=== PATIENT | female | born 1985 | race Caucasian/White ===

== ENCOUNTER 2022-06-17 10:15 | Emergency (ER) | payer OTHER, SELFPAY ==
[2022-06-17 11:10] VITALS: BP 125/67; PULSE 107; RESP 18; TEMP 36.8; O2SAT 97
--- NOTE | 2022-06-17 11:26 | ED.URI ---
HPI - URI/Sore Throat General Chief Complaint: Upper Respiratory Infection Stated Complaint: cough,congestion Time Seen by Provider: 06/17/22 11:30 Source: patient and RN notes reviewed Mode of arrival: ambulatory Limitations: no limitations History of Present Illness HPI Narrative: 36-year-old female presents to the [facility] with complaints of fever, cough, congestion and runny nose. Patient states that she started on Tuesday. Has taken [id number] products with minimal relief. Related Data Home Medications Medication Instructions Recorded Confirmed No Home Medications 06/17/22 06/17/22 Allergies Allergy/AdvReac Type Severity Reaction Status Date / Time No Known Allergies Allergy Verified 06/17/22 11:24 Review of Systems Review of Systems: All systems reviewed & are unremarkable except as noted in HPI and below Constitutional: Constitutional: Reports as per HPI, Denies chills and Reports fever(s) Eyes: Eyes: Reports no additional eye complaints ENT: Reports as per HPI and Reports nasal congestion Cardiovascular: Cardiovascular: Reports no additional cardiovascular complaints Respiratory: Respiratory: Reports no additional respiratory complaints Gastrointestinal: Gastrointestinal: Reports no additional gastrointestinal complaints Musculoskeletal: Musculoskeletal: Reports no additional musculoskeletal complaints Integumentary/Breasts: Skin/Breast: Reports system reviewed and no additional complaints, except as docu Neurologic: Reports system reviewed and no additional complaints, except as documented Psychiatric: Psychiatric: Reports no additional psychiatric complaints Allergic/Immunologic: Allergic/Immunologic: Reports no additional allergic/immunologic complaints PMFSH Past Medical History Medical History (Updated 06/17/22 @ 16:40 by Nayana Mayo APRN) No significant medical problems Surgical History Surgical History (Updated 06/17/22 @ 16:40 by Nayana Mayo APRN) No history of previous surgery Social History Social History (Updated 06/17/22 @ 16:40 by Nayana Mayo APRN) Living arrangements: with family 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 There is no relevant family history pertinent to the patient complaint. Exam Const: General: no acute distress, alert, ill appearing acutely (mild) and well nourished Nutritional Appearance: well nourished Orientation/consciousness: patient oriented x3 Limitations: no limitations HENMT: Head: normal to inspection Ears: external ears normal, TM's normal bilaterally and EAC's normal Face/Nose/Sinus: Normal external nose present and Nasal discharge present clear Face and sinus: normal facial exam Mouth: Yes Normal oral and palatal mucosa present, Yes lip normal and Yes moist mucous membranes Throat: posterior oropharynx normal and uvula midline Eyes: General: appearance normal, both eyes and all related structures Pupils: Equal, round and reactive pupils present Neck: Neck: normal visual inspection, no lymphadenopathy and no meningeal signs Chest: Chest palpation & inspection: normal inspection of the chest Resp: Effort & Inspection: normal respiratory effort and no use of accessory muscles Auscultation: clear to auscultation bilaterally, no crackles, no rales, no rhonchi and no wheezes Cardio: Rate: regular rate Rhythm: regular rhythm Skin: General skin exam: normal color Rashes: no rashes Wounds: no wounds Neuro: General: patient oriented x3, moves all extremities, no meningeal signs and no focal motor deficits Cranial nerves: Yes Equal, round and reactive pupils present Speech: normal speech Gait exam (Neuro): Normal gait present Extrem: General: normal to inspection, full ROM an
== END 2022-06-17 11:50 | disposition home or self-care (01) ==
PROVIDERS: Emergency Provider Nurse Practitioner
DX: J10.1 Influenza due to other identified influenza virus with other respiratory manifestations (principal)
CPT/HCPCS: 87804; 99203; G0463

== ENCOUNTER 2024-12-03 08:59 | Emergency (ER) | payer OTHER, SELFPAY ==
[2024-12-03 09:07] VITALS: BP 132/77; PULSE 71; RESP 18; TEMP 36.3; O2SAT 99
--- NOTE | 2024-12-03 09:15 | ED_ITS ---
HPI - Dizziness General Chief Complaint: Dizziness Stated Complaint: Dizzy Time Seen by Provider: 12/03/24 09:16 Source: patient Mode of arrival: ambulatory Limitations: no limitations History of Present Illness HPI Narrative: She is here for a 5 day history of dizziness. She reports dizziness onset with flying to [place] for vacation. She reports she flew home yesterday and again had increased symptoms. She reports dizziness with changing positions and looking around. She reports dizziness improves if she is able to keep her eyes fixed on the ground. She does not feel 1 side feels worse than the other. She does report some nasal congestion and endorses some sinus pressure. she denies ear pain. She denies chest pain. She denies any history of diabetes. Related Data Allergies Allergy/AdvReac Type Severity Reaction Status Date / Time No Known Allergies Allergy Verified 12/03/24 09:11 Review of Systems Review of Systems: CONSTITUTIONAL: Denies fever, chills, or sweats. Reports dizziness. EYES: Denies redness or discharge. Endorses vision changes with dizziness. ENT: Denies rhinorrhea, sore throat, or otalgia. Reports congestion as noted in HPI. CARDIOVASCULAR: Denies chest pain, palpitations, or edema. RESPIRATORY: Denies cough or dyspnea. GASTROINTESTINAL: Denies abdominal pain, nausea, vomiting, or diarrhea. GENITOURINARY: Denies dysuria or hematuria. SKIN: Denies rash or itching. MUSCULOSKELETAL: Denies back pain, joint pain, or myalgia. NEUROLOGIC: Denies numbness, or weakness. Reports headaches, however states these are normal for her. PSYCHIATRIC: Denies anxiety or depression. All other systems reviewed are negative, except as documented in HPI. 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 HEAD: normocephalic, atraumatic. EYES: PERRL. +mild nystagmus. Sclera clear/white. Vision is grossly intact. EARS: External ears normal, auditory canals clear and without drainage, TMs with clear fluid and no perforation. Hearing grossly intact. NOSE: External nose normal with no obvious nasal discharge, nares with redness and rhinorrhea. THROAT: Mucous membranes moist, posterior pharynx clear. NECK: Trachea midline. CARDIOVASCULAR: Regular rate and rhythm without murmurs, gallops, or rubs. RESPIRATORY: Clear to auscultation. Breath sounds equal bilaterally. No wheezes, rales, or rhonchi. SKIN: warm, Dry, intact with no suspicious lesions or rash, good texture and turgor. NEURO: awake, alert, and oriented to person, place and time. There were no obvious focal neurologic abnormalities. EXTREMITIES: No joint tenderness, effusion, or edema noted. No calf tenderness. Negative Homans sign bilaterally. BACK: Nontender without deformity. Course Course Level of Care: Express Care Visit Vital Signs Vital signs: Vital Signs Temperature 36.3 C L 12/03/24 09:07 Pulse Rate 71 12/03/24 09:07 Respiratory Rate 18 12/03/24 09:07 Blood Pressure 132/77 12/03/24 09:07 Pulse Oximetry 99 12/03/24 09:07 Oxygen Delivery Room Air 12/03/24 09:07 Temperature 36.3 C L 12/03/24 09:07 Pulse Rate 71 12/03/24 09:07 Respiratory Rate 18 12/03/24 09:07 Blood Pressure 132/77 12/03/24 09:07 Pulse Oximetry 99 12/03/24 09:07 Oxygen Delivery Room Air 12/03/24 09:07 Reviewed. MDM - Dizziness MDM Narrative Medical decision making narrative: Reports dizziness after travel. Took Sudafed with some relief, but symptoms returned. No history of diabetes. No vomiting, but reported nausea. Staying well hydrated. Denies chest pain or history of cardiac concerns. Discharge Plan Discharge Clinical Impression: Vertigo Patient Disposition: Home Condition: Stable Instructions: Antibiotic Form, Vertigo (ED) Additional Instructions: Take medications as prescribed.? Follow printed instructions provided. Also start over the counter Flonase nasal spray and an oral antihistamine such as Zyrtec as directed on the packaging. Follow-up with primary care provider. Go to the ER for any worsening symptoms or concerns. Patient Language: Sami Prescriptions: New meclizine 25 mg tablet 25 mg PO TID Qty: 21 0RF ondansetron 4 mg tablet,disintegrating 4 mg PO Q6H PRN (Reason: nausea and vomiting) Qty: 12 0RF Follow-up/Referrals: [place], [Primary Care Provider] - Time of Disposition: 09:28
--- OUTSIDE RECORDS SUMMARY | 2024-12-03 09:48 | XMS_ITS | Clinical Summary ---
Author Organization [facility] Address [address] [place] [address] Care Team Providers Care Senior Report Developer Name Role Phone Unavailable Primary Care Provider Unavailabl e Allergies No known active allergies Medications No known medications Active Problems No known active problems Social History Tobacco Use Types Packs/Day Years Used Date Smoking Tobacco: Never Assessed Comments Unknown Sex and Gender Information Value Date Recorded Sex Assigned at Not on file Legal Sex Female 3:31 PM PDT Gender Identity Not on file Sexual Orientation Not on file Last Filed Vital Signs Vital Sign Reading Time Taken Comments Blood Pressure 108/70 01/25/2022 1:40 PM MDT Pulse 77 01/25/2022 1:40 PM MDT Temperature - - Respiratory Rate - - Oxygen Saturation - - Inhaled Oxygen Concentration - - Weight - - Height - - Body Mass Index - - Plan of Treatment Health Maintenance Due Date Last Done Comments Periodontal Maintenance 1985 Dental Oral Exam 07/15/2022 01/12/2022 Dental X-Ray: Bitewings 07/15/2022 01/12/2022 Scaling and Root Planing 02/09/2024 022, 01/25/2022, 01/25/2022, Additional history exists Dental X-Ray: Full Mouth 01/14/2025 01/13/2022, 12/15 Dental X-Ray: Panoramic 01/14/2025 01/13/2022, 01/12 Meningococcal B Vaccine Aged Out No l onger eligible based on patient's age to complete this topic Procedures Procedure Name Priority Date/Time Associated Diagnosis Comments LL PERIODONTAL SCALING AND ROOT PLANING - ONE TO THREE TEETH PER QUADRANT Routine 01/25/2022 1:30 PM MDT PANORAMIC RADIOGRAPHIC IMAGE Routine 01/12/2022 2:00 PM MDT INTRAORAL - COMPREHENSIVE SERIES OF RADIOGRAPHIC IMAGES Routine 01/12/2022 2:00 PM MDT COMPREHENSIVE ORAL EVALUATION - NEW OR ESTABLISHED PATIENT Routine 01/12/2022 2:00 PM MDT from Last 3 Months or Most Recently Relevant to Health Maintenance Insurance [facility] [place] [id number]
--- OUTSIDE RECORDS SUMMARY | 2024-12-03 09:48 | XMS_ITS | Encounter Summary ---
Author Organization [facility] Address [address] [place] [address] Care Team Providers Care Natural Gas Field Processing Supervisor Name Role Phone Unavailable Primary Care Provider Unavailabl e Prior Encounters Date Type Department Care Team Description 01/25/2022 Travel 01/25/2022 1:30 PM MDT Office Visit [facility] [address] [place] [address] Cecilia Pretty RDH 01/12/2022 Travel 01/12/2022 2:00 PM MDT Office Visit [facility] [address] [place] [address] Jaciel Pappas, MATILDA Last Filed Vital Signs Vital Sign Reading Time Taken Comments Blood Pressure 108/70 01/25/2022 1:40 PM MDT Pulse 77 01/25/2022 1:40 PM MDT Temperature - - Respiratory Rate - - Oxygen Saturation - - Inhaled Oxygen Concentration - - Weight - - Height - - Body Mass Index - - Plan of Treatment Not on file Procedures Procedure Name Priority Date/Time Associated Diagnosis Comments SALES TAX Routine 01/25/2022 1:30 PM MDT SALES TAX Routine 01/25/2022 1:30 PM MDT ORAL HYGIENE INSTRUCTIONS Routine 2021 1:30 PM MDT TOPICAL APPLICATION OF FLUORIDE VARNISH Routine 01/25/2022 1:30 PM MDT LL KEEGAN DECON ONE TO THREE TEETH/QUAD Routine 01/25/2022 1:30 PM MDT UL KEEGAN DECON ONE TO THREE TEETH/QUAD Routine 01/25/2022 1:30 PM MDT LL ANTIBACT IRR/QUAD Routine 01/25/2022 1:30 PM MDT UL ANTIBACT IRR/QUAD Routine 01/25/2022 1:30 PM MDT UL PERIODONTAL SCALING AND ROOT PLANING - ONE TO THREE TEETH PER QUADRANT Routine 01/25/2022 1:30 PM MDT UR PERIODONTAL SCALING AND ROOT PLANING - ONE TO THREE TEETH PER QUADRANT Routine 01/25/2022 1:30 PM MDT UR ANTIBACT IRR/QUAD Routine 01/25/2022 1:30 PM MDT LR PERIODONTAL SCALING AND ROOT PLANING - ONE TO THREE TEETH PER QUADRANT Routine 01/25/2022 1:30 PM MDT LL PERIODONTAL SCALING AND ROOT PLANING - ONE TO THREE TEETH PER QUADRANT Routine 01/25/2022 1:30 PM MDT UR KEEGAN DECON ONE TO THREE TEETH/QUAD Routine 01/25/2022 1:30 PM MDT LR KEEGAN DECON ONE TO THREE TEETH/QUAD Routine 01/25/2022 1:30 PM MDT LR ANTIBACT IRR/QUAD Routine 01/25/2022 1:30 PM MDT INTRAORAL PHOTO Routine 01/12/2022 2:00 PM MDT INTRAORAL PHOTO Routine 01/12/2022 2:00 PM MDT INTRAORAL PHOTO Routine 01/12/2022 2:00 PM MDT INTRAORAL PHOTO Routine 01/12/2022 2:00 PM MDT PANORAMIC RADIOGRAPHIC IMAGE Routine 01/12/2022 2:00 PM MDT INTRAORAL - COMPREHENSIVE SERIES OF RADIOGRAPHIC IMAGES Routine 01/12/2022 2:00 PM MDT COMPREHENSIVE ORAL EVALUATION - NEW OR ESTABLISHED PATIENT Routine 01/12/2022 2:00 PM MDT Visit Diagnoses Not on file Insurance [facility] [place] [id number]
--- OUTSIDE RECORDS SUMMARY | 2024-12-03 09:49 | XMS_ITS | Encounter Summary ---
Author Organization [facility] Address [address] [place] [address] Care Team Providers Care A P Manager Name Role Phone Unavailable Primary Care Provider Unavailabl e Encounter Details Date Type Department Care Team (Late st Contact Info) Description 04/06/2024 Lab Requisition [facility] - DermPath Lab [address] [place] [id number] Debby Taylor MD [address] [place] [address] [place] [address] Other follicular cysts of the skin and subcutaneous tissue; Other specified erythematous conditions; Other disturbances of skin sensation Social History Tobacco Use Types Packs/Day Years Used Date Smoking Tobacco: Never Assessed Comments Unknown Sex and Gender Information Value Date Recorded Sex Assigned at Not on file Legal Sex Female 8:35 AM CDT Gender Identity Not on file Sexual Orientation Not on file documented as of this encounter Plan of Treatment Not on file documented as of this encounter Procedures Procedure Name Priority Date/Time Associated Diagnosis Comments DERMATOPATHOLOGY Routine 04/05/2024 3:33 AM CDT Other follicular cysts of the skin and subcutaneous tissue Other specified erythematous conditions Other disturbances of skin sensation documented in this encounter Results * DERMATOPATHOLOGY (04/05/2024 3:33 AM CDT) Case Report Dermatopathology Report Case: [id number] Authorizing Provider: Debby Taylor MD Collected: 04/05/2024 03:33 AM Ordering Location: [facility] - Received: 04/06/2024 12:13 PM DermPath Lab Pathologist: Gloria Phillips MD Specimens: A) - Skin, left superior occipital scalp B) - Skin, left inferior occipital scalp 1:30 PM CDT DERMATOPATHOLOGY LABORATORY Final Diagnosis Specimen A. SKIN, left superior occipital scalp: TRICHILEMMAL (PILAR) CYST (L72.12) Specimen B. SKIN, left inferior occipital scalp: TRICHILEMMAL (PILAR) CYST (L72.12) 1:30 PM [facility] DERMATOPATHOLOGY LABORATORY Clinical History A-B: Cyst 1:30 PM [facility] DERMATOPATHOLOGY LABORATORY Gross Description Specimen A: Received is one formalin filled container labeled with the patient's name and designated left superior occipital scalp. The specimen consists of a [id number] mm piece of skin. The margin is inked green. The specimen is bisected lengthwise and submitted in 1 cassette. Jar 0. Specimen B: Received is one formalin filled container labeled with the patient's name and designated left inferior occipital scalp. The specimen consists of a 10x9x6,5x9x6,14x7x4 mm piece of skin. The specimen is serially sectioned and a call center representative section is submitted in cassette 1. Jar 1. 1:30 PM [facility] DERMATOPATHOLOGY LABORATORY Microscopic Description Specimen A. SKIN, left superior occipital scalp: Sections show a cyst that is lined by stratified squamous epithelium that shows trichilemmal keratinization (no granular layer). There is homogeneous pink keratin within the cyst. Specimen B. SKIN, left inferior occipital scalp: Sections show a cyst that is lined by stratified squamous epithelium that shows trichilemmal keratinization (no granular layer). There is homogeneous pink keratin within the cyst. 1:30 PM [facility] DERMATOPATHOLOGY LABORATORY Disclaimer An external and internal positive and negative controls are appropriate for the histochemical, immunohistochemical and immunofluorescence stain(s) in this case (if any), except where stated explicitly. The performance characteristics of the stain(s) cited in this report were developed and its performance characteristic determined by the Dermatopathology Laboratory at [facility], directed by Dr. Chino Cabrera. These tests need not be, and therefore are not, approved by the [place] Food and Drug Administration. The tests are used for clinical purposes. Billing Codes Specimen Charges Stain Charges 69636 95199 1 1 08/26/202 4 1:30 PM CDT DERMATOPATHOLOGY LABORATORY Embedded Images 4 1:30 PM CDT DERMATOPATHOLOGY LABORATORY Pathology/Cytology TISSUE SPECIMEN FROM SKIN / Unknown 04/05/2024 3:33 AM CDT 04/06/2024 12:13 PM CDT Miscellaneous samples (specimen) TISSUE SPECIMEN FROM SKIN / Unknown 04/05/2024 3:33 AM CDT 04/06/2024 12:13 PM CDT us Debby Taylor MD LAB - PATHOLOGY/CYTOLOGY ORDERAB LES Final Result DERMATOPATHOLOGY LABORATORY [facility] - Department of Dermatology [facility] [address] [place] [address], [address] [phone] documented in this encounter Visit Diagnoses Diagnosis Other follicular cysts of the skin and subcutaneous tissue Other specified erythematous conditions Other disturbances of skin sensation documented in this encounter
--- OUTSIDE RECORDS SUMMARY | 2024-12-03 09:49 | XMS_ITS | Clinical Summary ---
Author Organization [facility] Address [address] [place] [address] Care Team Providers Care Hearing Therapy Director Name Role Phone Unavailable Primary Care Provider Unavailabl e Source Comments [facility] [employer],non-owned Affiliates and Associated Physician Practices is amultiple site organization consisting of ambulatory clinics and hospital sitesin [place], [place], [place] and [place]. This disclosure is being madepursuant to the Care Everywhere program and may not contain all information available regarding this patient. Last updated 18.[facility] [employer] Social History Tobacco Use Types Packs/Day Years Used Date Smoking Tobacco: Never Assessed Comments Unknown Sex and Gender Information Value Date Recorded Sex Assigned at Not on file Legal Sex Female 8:35 AM CDT Gender Identity Not on file Sexual Orientation Not on file Plan of Treatment Health Maintenance Due Date Last Done Comments LIPID TESTING 1985 MAMMOGRAM 1983 PAP SMEAR 1983 HIV SCREENING 10/26/1998 HEPATITIS C SCREENING 10/22/2001 DTAP/TDAP/TD VACCINES (1 - Tdap) 10/26/2002 HEPATITIS B VACCINE (1 of 3 - 19+ 3-dose series) 10/26/2002 COVID-19 VACCINE (2023-2 5 season) 2024 DEPRESSION SCREENING 08/15/2024 INFLUENZA VACCINE (Season Ended) 2025 ZOSTER VACCINE (1 of 2) 10/26/2033 HIB VACCINE Aged Out No longer eligi ble based on patient's age to complete this topic HPV VACCINE Aged Out No longer eligi ble based on patient's age to complete this topic MENINGOCOCCAL (Group B) VACC INE SHARED DECISION-MAKING Aged Out No longer eligibl e based on patient's age to complete this topic MENINGOCOCCAL GROUPS A/C/Y/W VACCINE Aged Out No longer eligible b ased on patient's age to complete this topic PNEUMOCOCCAL VACCINE Aged Out No long er eligible based on patient's age to complete this topic Insurance
--- OUTSIDE RECORDS SUMMARY | 2024-12-03 09:49 | XMS_ITS | Continuity of Care Document ---
Author Name [facility] Organization [facility] Care Team Providers Care Director Of Dietary Name Role Phone [facility] Unavailable Unavailable Problems Combined list of problems from Department of Defense and Veterans Affairs facilities. It does not include entries that were removed or entered in error. Problem Status Onset Date Problem Type Date of Resolution Comments Source [place] Active 12/23/19 24 Diagnosis 6130C-Af -C-375Th [facility] Lipoma Active 12/20/19 24 Diagnosis 6130C-Af -C-375Th [facility] [place] Active 12/20/19 24 Diagnosis 6130C-Af -C-375Th [facility] Allergic rhinitis Active Condition 6130 C-Af -C-375Th [facility] LARYNGITIS ACUTE Inactive Condition DoD SINUSITIS ACUTE MAXILLARY Inactive Condition DoD SKIN NEOPLASM SCALP Active Condition DoD MARITAL PROBLEM Inactive Condition DoD DEPRESSION Active Condition DoD insomnia Active Condition DoD PREMENSTRUAL SYNDROMES Active Condition DoD Mood Irritable Active Condition DoD headache Inactive Condition DoD SEBACEOUS CYST Inactive Condition DoD ROUTINE GYNECOLOGICAL EXAM Inactive Condition DoD Preventive Medicine New Patient Evaluation Adult 18-39 Inactive Condition DoD visit for: examination of subpopulation Active Condition DoD ALLERGIC RHINITIS Active Condition DoD visit for: contraceptive surveillance Inactive Condition DoD PSORIASIS Active Condition DoD Patient Education - Procreative Management Active Condition DoD lightheadedness Inactive Condition DoD visit for: screening exam malignant neoplasm breast Inactive Condition DoD skin: a rash [as Sx] Active Condition DoD SEBORRHEIC DERMATITIS Active Condition DoD visit for: administrative purpose Active Condition DoD joint pain, localized in the shoulder Active Condition DoD ANOMALIES OF NAILS Active Condition DoD 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 She states still having problem with stomach pain. Per Dr Mcduffie, patient to continue Prilosec as prescribed and f/u after bein on it for 2 week.s F/u scheduled with patient as below. F/u sooner prn. DoD ESOPHAGEAL REFLUX Active Condition DoD CYSTOCELE Active Condition asymptomat ic. discussed this with patient. Discussed kegalsno plan to do anything unless sx develop DoD visit for: exam Active Condition patient doin g well without major complicationsf/u as neededshe well start ocp's in october when comespap/gc done DoD NORMAL Inactive Condition see hard bryson rt DoD ABNORMAL GLUCOSE Active Condition DoD NORMAL CHECKUP - THIRD TRIMESTER Inactive Condition fkc/labor precautions DoD NORMAL CHECKUP - SECOND TRIMESTER Active Condition DoD NORMAL CHECKUP - INITIAL Active Condition DoD Patient Education - Preparation For Childbirth Active Condition DoD Patient Education - Dietary Inactive Condition A: Patient demonstrated understanding as shown by her active role during the discussion portion of the lecture. P: 1. Recommend patient to schedule a follow-up appointment with [facility] at [phone] for further instruction and to obtain an individualized meal plan to meet nutritional needs during . 2. Will continue to provide nutrition information and support per request DoD Supervision Of Normal Active Condition DoD Test Positive Active Condition DoD Abnormal Pap Smear Of Cervix Active Condition Pap ordered via [facility]. Discussed return of fertility following discontinuation of Depo-Provera. Pt will follow up with her PCM as necessary regarding possible infertility issues. Pt had no other questions at this time. DoD CERVICITIS CHLAMYDIA TRACHOMATIS Active Condition DoD ROUTINE GYNECOLOGICAL EXAM WITH CERVICAL PAP SMEAR Inactive Condition DoD Cervical Pap Smear Active Condition DoD NORMAL ROUTINE HISTORY AND PHYSICAL ADULT (18-65) Inactive Condition overseas clearance exam.urine preg neg, DoD Medications Combined list of outpatient medications from Department of Defense and Veterans Affairs facilities.Medications provided include 1) outpatient medications from the last 15 months, and 2) patient-reported medications. Medication Details Route Status Patient Instructions Prescription Expires Prescription Number Last Dispense Date Ordering Provider Order Date Order Qty Source METRONIDAZO LE (METRONIDAZ OLE), 0.75%, CREAM(GM), TOPICAL, FOUGERA, 45 g TUBE Active [id number] 2023 45 Pharmac y Data Transac tion Service Facilit y METRONIDAZO LE (metronidaz ole), 1 %, GEL (GRAM), TOPICAL, [facility], 60 g TUBE Active [id number] 4 2023 60 Pharmac y Data Transac tion Service Facilit y metroNIDAZO LE 1% topical cream 1 appl(s), Topical, Daily, # 30 g, 3 total refill(s ), [facility], [id number] Topica l (on the skin) Discont inued 12/23/20232023 30.0 6130C-A f-C-375 Th [facility] [place] 1% topical gel See Instruct ions, 1 appl(s) Topical Daily apply a thin film to affected area after washing, # 60 g, 1 total refill(s ), [facility], [facility] : [id number] Ordered 2023 60.0 6130C-A f-C-375 Th [facility] [place] [facility]ERNA COVID-19 VACCINE (EUA) (COVID-19 vaccine, mRNA, [id number], LNP-S (Moderna)/P F), 100MCG/0.5, MODERNA COVID-19 VACCINE (EUA) (COVID-1 9 vaccine, mRNA, [id number], LNP-S (Moderna )/PF), 100MCG/0 .5, Start Date: 10/10/20 Stop Date: 12/19/23 Status: Disconti nued Repeat number: 1 Discont inued 12/20/20232023 No Facilit y Access Allergies, Adverse Reactions, Alerts Combined list of allergies from Department of Defense and Veterans Affairs facilities. It does not include entries that were removed or entered in error. Substance Category Reaction Severity Reaction type Status Date Reported Comments Source No Known Allergies Drug allergy (disorder) active 01/17/2008 [facility] Immunizations Combined list of available immunizations from the Department of Defense and Veterans Affairs facilities. Immunization Series Date Given Administered By Site Reaction Lot Number CVX Code Drug Breeding Manager Status Comments Source COVID-19, mRNA, LNP-S, PF, 100 mcg or 50 mcg dose 2021 [employer] (MOD) Not Given COVID-19, mRNA, LNP-S, PF, 100 mcg or 50 mcg dose DoD COVID-19, mRNA, LNP-S, PF, 100 mcg or 50 mcg dose 2020 ADAM, () Not Given COVID-19, mRNA, LNP-S, PF, 100 mcg or 50 mcg dose DoD COVID-19, mRNA, LNP-S, PF, 100 mcg or 50 mcg dose 2020 MEDINA, () Not Given COVID-19, mRNA, LNP-S, PF, 100 mcg or 50 mcg dose DoD hepatitis B adult vaccine 2009 zzRig ht Arm [id number] [facility] complet ed hepatitis B adult vaccine 01/01/10 Given Ambulat ory Pharmac y hepatitis B vaccine, adult dosage 2 2009 Unknown, Provider [id number] 43 [place] complet ed hepatitis B vaccine, adult dosage DoD tuberculin purified protein derivative 2009 zzLef t Arm [id number] sanofi pasteur complet ed Patient Tolerance : Negative Ambulat ory Pharmac y tuberculin skin test; purified protein derivative solution, intradermal 1 2009 Unknown, Provider [id number] Sanofi Pasteur (PMC) complet ed tuberculi n skin test; purified protein derivativ e solution, intraderm al DoD tuberculin purified protein derivative 2006 zzLef t Arm [id number] sanofi pasteur complet ed Patient Tolerance : Negative Ambulat ory Pharmac y tuberculin skin test; purified protein derivative solution, intradermal 1 2006 Unknown, Provider [id number] 96 Sanofi Pasteur (PMC) complet ed tuberculi n skin test; purified protein derivativ e solution, intraderm al DoD tetanus-dipht h toxoids (Td) adult/adol 2001 09 complet ed tetanus-d iphth toxoids (Td) adult/ado l 03/09/02 Given Ambulat ory Pharmac y hepatitis B adult vaccine 2001 43 complet ed hepatitis B adult vaccine 03/09/02 Given Ambulat ory Pharmac y tetanus and diphtheria toxoids, adsorbed, preservative free, for adult use (2 Lf of tetanus toxoid and 2 Lf of diphtheria toxoid) 1 2001 Unknown, Provider 09 Transcribed (TRS) complet ed tetanus and diphtheri a toxoids, adsorbed, preservat víctor free, for adult use (2 Lf of tetanus toxoid and 2 Lf of diphtheri a toxoid) DoD hepatitis B vaccine, adult dosage 1 2001 Unknown, Provider 43 Transcribed (TRS) complet ed hepatitis B vaccine, adult dosage DoD poliovirus vaccine, live, oral 1990 zzLef t Arm 02 complet ed polioviru s vaccine, live, oral 05/11/91 Given Ambulat ory Pharmac y measles/mumps /rubella virus vaccine 1990 03 complet ed measles/m umps/rube lla virus vaccine 05/11/91 Given Ambulat ory Pharmac y diphtheria/te tanus toxoids/pertu is 1990 zzLef t Arm 01 complet ed diphtheri a/tetanus toxoids/p ertussis 05/11/91 Given Ambulat ory Pharmac y diphtheria, tetanus toxoids and pertu is vaccine 4 1990 Unknown, Provider 01 () complet ed diphtheri a, tetanus toxoids and pertussis vaccine DoD trivalent poliovirus vaccine, live, oral 4 1990 Unknown, Provider 02 () complet ed trivalent polioviru s vaccine, live, oral DoD measles, mumps and rubella virus vaccine 2 1990 Unknown, Provider 03 Transcribed (TRS) complet ed measles, mumps and rubella virus vaccine DoD tuberculin purified protein derivative 1989 96 complet ed Patient Tolerance : Negative Ambulat ory Pharmac y tuberculin skin test; purified protein derivative solution, intradermal 2 1989 Unknown, Provider 96 Transcribed (TRS) complet ed tuberculi n skin test; purified protein derivativ e solution, intraderm al DoD typhoid Vi capsular polysaccharid e vac 1985 101 complet ed typhoid Vi capsular polysacch aride vac 04/02/86 Given Ambulat ory Pharmac y tuberculin purified protein derivative 1985 96 complet ed Patient Tolerance : Negative Ambulat ory Pharmac y tuberculin skin test; purified protein derivative solution, intradermal 2 1985 Unknown, Provider 96 Transcribed (TRS) complet ed tuberculi n skin test; purified protein derivativ e solution, intraderm al DoD typhoid Vi capsular polysaccharid e vaccine 1 1985 Unknown, Provider 101 Transcribed (TRS) complet ed typhoid Vi capsular polysacch aride vaccine DoD poliovirus vaccine, live, oral 1984 zzLef t Arm 02 complet ed polioviru s vaccine, live, oral 06/11/85 Given Ambulat ory Pharmac y diphtheria/te tanus toxoids/pertu is 1984 zzLef t Arm 01 complet ed diphtheri a/tetanus toxoids/p ertussis 06/11/85 Given Ambulat ory Pharmac y diphtheria, tetanus toxoids and pertu is vaccine 3 1984 Unknown, Provider 01 () complet ed diphtheri a, tetanus toxoids and pertussis vaccine DoD trivalent poliovirus vaccine, live, oral 3 1984 Unknown, Provider 02 () complet ed trivalent polioviru s vaccine, live, oral DoD poliovirus vaccine, live, oral 1984 zzLef t Arm 02 complet ed polioviru s vaccine, live, oral 03/29/85 Given Ambulat ory Pharmac y measles/mumps /rubella virus vaccine 1984 03 complet ed measles/m umps/rube lla virus vaccine 03/29/85 Given Ambulat ory Pharmac y diphtheria/te tanus toxoids/pertu is 1984 zzLef t Arm 01 complet ed diphtheri a/tetanus toxoids/p ertussis 03/29/85 Given Ambulat ory Pharmac y diphtheria, tetanus toxoids and pertu is vaccine 2 1984 Unknown, Provider 01 () complet ed diphtheri a, tetanus toxoids and pertussis vaccine DoD trivalent poliovirus vaccine, live, oral 2 1984 Unknown, Provider 02 () complet ed trivalent polioviru s vaccine, live, oral DoD measles, mumps and rubella virus vaccine 1 1984 Unknown, Provider 03 Transcribed (TRS) complet ed measles, mumps and rubella virus vaccine DoD tuberculin purified protein derivative 1984 96 complet ed Patient Tolerance : Negative Ambulat ory Pharmac y tuberculin skin test; purified protein derivative solution, intradermal 2 1984 Unknown, Provider 96 Transcribed (TRS) complet ed tuberculi n skin test; purified protein derivativ e solution, intraderm al DoD poliovirus vaccine, live, oral 1983 zzLef t Arm 02 complet ed polioviru s vaccine, live, oral 83 Given Ambulat ory Pharmac y diphtheria/te tanus toxoids/pertu is 1983 Meliaef t Arm 01 complet ed diphtheri a/tetanus toxoids/p ertussis 83 Given Ambulat ory Pharmac y diphtheria, tetanus toxoids and pertu is vaccine 1 1983 Unknown, Provider 01 () complet ed diphtheri a, tetanus toxoids and pertussis vaccine DoD trivalent poliovirus vaccine, live, oral 1 1983 Unknown, Provider 02 () complet ed trivalent polioviru s vaccine, live, oral DoD Results Combined list of recent chemistry, hematology and other laboratory results from Department of Defense and Veterans Affairs, ranging from 15 months to all on record, depending upon the facility. Order Name Results Value Reference Range Date Interpretation Specimen Comments Source Chemistry TSH 3.990 mIU/L 0.270 - 4.200 12/19 N Interpretive Data: Recommend: TPO/Thyroper oxidase Antibody when TSH result is > 4.2 uIU/mL 5600A-U SAFSAM EPILAB Hematology [place] Absolute 0.5 x10^3/ mcL 0.2 - 0.8103 12/19 N 0055A-[address] [place] [address] Hematology Baso Absolute 0.0 x10^3/ mcL 0.0 - 0.1103 12/19 N 0055A-[address] [place] [address] Hematology Monocyte % Auto 6 % 1 - 12 12/19 N 0055A-[address] [place] [address] Hematology Basophil % Auto 0.6 % 0.0 - 2.5 12/19 N 0055A-[address] [place] [address] Hematology Neutro Absolute 5.1 x10^3/ mcL 2.0 - 7.0103 12/19 N 0055A-[address] [place] [address] Hematology Eos Absolute 0.5 x10^3/ mcL 0.0 - 0.7103 12/19 N 0055A-[address] [place] [address] Hematology Eosinophil % Auto 5 % 0 - 5 12/19 N 0055A-[address] [place] [address] Hematology Lymphocyte % Auto 30.5 % 20.0 - 40.0 12/19 N 0055A-[address] [place] [address] Lymph Absolute 2.7 x10^3/ mcL 1.2 - 4.0103 12/[address] [place] [address] Neutrophil % Auto 57.2 % 46.0 - 77.0 12/[address] [place] [address] MCH 29 pg 28 - 33 12/[address] [place] [address] Platelets 312.0 x10^3/ mcL 150.0 - 450.0103 12/[address] [place] [address] Hematocrit 40 % 34 - 46 12/[address] [place] [address] RBC 4.6 x10^6/ mcL 3.6 - 5.0106 12/[address] [place] [address] RDW 12.0 % 11.0 - 14.9 12/[address] [place] [address] MCHC 34.1 g/dL 33.0 - 36.5 12/[address] [place] [address] Hemoglobin 13.6 g/dL 11.0 - 15.0 12/[address] [place] [address] MCV 86 fL 80 - 97 12/[address] [place] [address] Differentia l? Auto ( 4 3:38 PM) 12/[address] [place] [address] MPV 9.9 fL 7.4 - 10.4 12/[address] [place] [address] WBC 8.9 x10^3/ mcL 4.0 - 11.0103 12/[address] [place] [address] Vital Signs Combined list of inpatient and outpatient Vital Signs from Department of Defense and Veterans Affairs, ranging from 12 months to all on record, depending upon the facility. Vital Sign Value Date Comments Source Peripheral Pulse Rate 79 bpm 12/20/2023 19:22:00 3724T-Xn-U-375Th [facility] Temperature Oral 37.2 Mena 12/20/2023 19:22:00 4298C-Fz-V-375Th [facility] Respiratory Rate 14 br/min 12/20/2023 19:22:00 8235A-Ea-O-375Th [facility] BP Site Left arm 12/20/2023 19:22:00 6130C -Af-C-375Th [facility] Mean Arterial Pressure, Calc 99 mm[Hg] 12/20/2023 19:22:00 2885P-Gk-T-3 75Th [facility] Blood Pressure Manual Automatic 12/20/2023 19:22:00 6346K-Yu-Q-375Th [facility] Systolic Blood Pressure 130 mm[Hg] 12/20/2023 19:22:00 7825K-Is-J-375Th [facility] Diastolic Blood Pressure 83 mm[Hg] 12/20/2023 19:22:00 2118H-Jo-Y-375Th [facility] Encounters Combined list of: 1) Encounters from Department of Veterans Affairs facilities going backup to the last 18 months, not all VA inpatient encounters are included; 2) Encounters from the Department of [facility] facilities going backup to 280 months. Location Location Details Encounter Type Encounter Number Reason For Visit Attending Provider ADM Date DC Date Status Disposition Source [employer] [place] [id number] [place] Box 12/09 Released w/o Limitations [employer](F amily Practic e Contrac t) [facility](K A Gynecolog y Clinic) OUTPATIENT [id number] annual IRMA RDZ 06/17 Released w/o Limitations [facility] ( Gynecol ogy Clinic) [facility]necolog [facility]) OUTPATIENT [id number] std councel ing IRMA RDZ 06/27 Released w/o Limitations [facility] ( Gynecol ogy Clinic) [facility] Gynecolog [facility]) OUTPATIENT [id number] re-pap/ pap DEV Moore 10/25 Released w/o Limitations [facility] ( Gynecol ogy Clinic) [facility] A Gynecolog y Clinic) OUTPATIENT [id number] JOAN VILLANUEVA 11/13 Released w/o Limitations [facility] (KA Gynecol ogy Clinic) [facility](I nternal Medicine Clinic) OUTPATIENT [id number] OB clinic WALI LEMOS 11/23 Released w/o Limitations [facility] (Fuels Sales Representative al Medicin e Clinic) [facility](O b/Guest Services Agent Clinic) OUTPATIENT [id number] Pregnan cy Test Positiv e KELLY OLIVO 11/23 Released w/o Limitations [facility] (Mobile Electronics Installer Clinic) [facility](O b/Guest Services Agent Clinic) OUTPATIENT [id number] nob10 ARFAA, KAIVON 12/09 Released w/o Limitations [facility] ([facility] Installer Clinic) [facility](O b/Guest Services Agent Clinic) OUTPATIENT [id number] paul f/u 15 wks ARFAA, KAIVON 02/06 Released w/o Limitations [facility] ([facility]) [facility](O b/Guest Services Agent Clinic) OUTPATIENT [id number] paul ARFAA, KAIVON 03/22 Released w/o Limitations [facility] ([facility]) [facility](O b/Guest Services Agent Clinic) OUTPATIENT [id number] ob fu 27 weeks ARFAA, KAIVON 04/26 Released w/o Limitations [facility] ([facility]) [facility](O b/Guest Services Agent Clinic) OUTPATIENT [id number] OB FU ARFAA, KAIVON 05/24 Released w/o Limitations [facility] ([facility] Install[facility]) [facility](O b/Guest Services Agent Clinic) OUTPATIENT [id number] ob f/u ARFAA, KAIVON 06/06 Released w/o Limitations [facility] ([facility] Installer Clinic) [facility](O b/Guest Services Agent Clinic) OUTPATIENT [id number] ARFAA, KAIVON 06/19 Released w/o Limitations [facility] ([facility] Installer [facility]) [facility](O b/Guest Services Agent Clinic) OUTPATIENT [id number] paul 37 weeks ARFAA, KAIVON 06/29 Released w/o Limitations [facility] ([facility]) [facility](O b/Guest Services Agent Clinic) OUTPATIENT [id number] ob fu 38 weeks ARFAA, KAIVON 07/04 Released w/o Limitations [facility] ([facility]) [facility](O b/Guest Services Agent Clinic) OUTPATIENT [id number] OB F/U GRIFFIN ABARCA 07/11 Released w/o Limitations [facility] ([facility]) [facility] DIRECT TO [facility] FROM OTHER THAN ER OR [facility] [id number] ARFAA, KAIVON 07/11 DISCHARGED HOME [facility](O b/Guest Services Agent Clinic) OUTPATIENT [id number] postpar akiko ARFAA, KAIVON 08/18 Released w/o Limitations [facility] ([facility] Installer Clinic) [facility](K cathy [employer]) OUTPATIENT [id number] nausea dizzyne ss, sharp pain with headach es LADONNA MCDUFFIE H 10/04 Released w/o Limitations [facility] ([place] [employer] [facility] ) [facility](K cathy [employer]) TELE CONSULT [id number] rad results HIEU MNOTOYA 10/09 [facility] ([place] [employer] [facility] ) [facility](K cathy [employer]) OUTPATIENT [id number] back pain x 2wks DEV AMAYA 01/21 Released w/o Limitations [facility] ([place] [employer] [facility] ) [facility](K A Gynecolog y Clinic) OUTPATIENT [id number] BC RefWHIT Banuelos 04/18 Released w/o Limitations [facility] (KA Gynecol ogy Clinic) [facility](K cathy [employer]) OUTPATIENT [id number] issue w/ inconte nace after giving in herbert sandoval provide r CONSTANTIN MAC 04/24 Released w/o Limitations [facility] ([place] [employer] ) [facility] [employer]) OUTPATIENT [id number] sore throat; hard to breathe in this morning ANDRIY AMADOR 05/16 Released w/o Limitations [facility] ([place] [employer] ) [facility](U rology Clinic) OUTPATIENT [id number] CYSTOCE TRUNG MIRANDA 05/20 Released w/o Limitations [facility] (Urolog y Clinic) [facility](K A Gynecolog y Clinic) OUTPATIENT [id number] annual YASMIN RANGEL 09/17 Released w/o Limitations [facility] ( Gynecol ogy Clinic) [facility](K A Gynecolog y Clinic) TELE CONSULT [id number] LAB RESULTS ADITYA PATTY 10/01 [facility] ( Gynecol ogy Clinic) [facility] [employer]) OUTPATIENT [id number] Torn toe nail ILA HOOVER W 12/31 Released w/o Limitations [facility] ([place] [employer] ) [facility] [employer]) OUTPATIENT [id number] F/u for torn great toe nail ILA HOOVER W 01/07 Released w/o Limitations [facility] ([place] [employer] ) [facility](K [facility] [employer]) TELE CONSULT [id number] no routine appt CATIE PALMA 01/21 [facility] ([place] [employer] [facility] ) [facility] [employer]) OUTPATIENT [id number] neck and shoulde r pain ILA HOOVER W 01/30 Released w/o Limitations [facility] ([place] [employer] [facility] ) [facility] [employer]) OUTPATIENT [id number] f/u neck and l shoulde r pain ILA HOOVER W 02/06 Released w/o Limitations [facility] ([place] [employer] ) [facility] Practice Blue) TELE CONSULT [id number] New Patient In-Proc ANDRIY Irwin 03/28 [facility](F amily Practic e Blue) [facility] Practice Red) OUTPATIENT [id number] rash off/on for a month ANDRIY BUENO 08/21 Released w/o Limitations [facility](F amily Practic e Red) [facility] Practice Red) TELE CONSULT [id number] lab results NILES MUNOZ 08/22 [facility](F amily Practic e Red) [facility](Guest Services Agent Clinic) OUTPATIENT [id number] annual pap exam LOYDA HALL 09/08 Released w/o Limitations [employer] [facility](G yn Clinic) [employer] [facility] [employer](Fam [facility] Practice Red) OUTPATIENT [id number] f/u for ANDRIY Wing 09/11 Released w/o Limitations [employer](F amily Practic e Red) [facility](Fam il[facility] Practice Red) TELE CONSULT [id number] CT results JOLLY MAURO 10/02 [facility](F amily Practic e Red) [facility](Fam ilana Practice Red) TELE CONSULT [id number] Pt has not rec'd shampoo via nonform ulary ANDRIY BUENO 10/13 [facility](F amily Practic e Red) [facility](Fam ilana Practice Red) OUTPATIENT [id number] would like to talk to PCM about getting tubes tied ANDRIY BUENO 12/26 Released w/o Limitations [facility](F amily Practic e Red) [facility](Exc eptional Family Mbr Program) TELE CONSULT [id number] Notes Entered by: Génesis SLAUGHTER 14 Jul 2012 1158 ------- ------- ------- ------- -- Medical record review for relocat NIHARIKA Galo 07/14 [facility](E xceptio nal Family Mbr Program ) [facility](War rio Operation al Medicine D) OUTPATIENT [id number] discuss issues JACINTA EAST 07/18 Released w/o Limitations [facility](W arrior Operati onal Medicin e D) [facility](Exc eptional Family Mbr Program) OUTPATIENT [id number] Notes Entered by: PATRICIA PARDO 25 Jul 2012 1533 ------- ------- ------- ------- -- Medical Sneha ce Appoint NIHARIKA Ariza 07/25 Released w/o Limitations [facility](E xceptio nal Family Mbr Program ) [place] [address]([facility]) OUTPATIENT [id number] Notes Entered by: NEL SPENCER MA TTHEW C 31 Aug 2012 1305 ------- ------- ------- ------- -- lower back pain PHONGTRINA A 08/31 Released w/o Limitations [facility] [place] [address]([facility]) [place] [address](Guest Services Agent ecology [facility], [facility]) OUTPATIENT [id number] IRMA FLEMING 09/08 Released w/o Limitations [facility] [place] [address](G kendrickcochan [facility]) [place] [address](Katherine olivo [facility] Team B) OUTPATIENT [id number] EVAL FOR BUMPS TO SCALP.. .LACKLA CRISTOBAL_[facility]_ TEAM B/[facility] BHARATI SWANSON 09/19 Released w/o Limitations [facility] [place] [address](Nitesh freeman [facility] Team B) [place] [address](Beh avioral th [facility]) OUTPATIENT [id number] initial JETT Suero 09/25 Released w/o Limitations [facility] [place] [address](B ehavior al th [facility]) [place] [address](Beh avioral th [facility]) OUTPATIENT [id number] f/u please give FARNAZ Hays 10/11 Released w/o Limitations [facility] [place] [address](B ehavior al [facility]) [place] [address](Beh avioral th [facility]) OUTPATIENT [id number] f/u please give SAFIA James 11/03 Released w/o Limitations [facility] [address](B ehavior al [facility] Med [facility]) [place] [address](Franck matology, [facility]) OUTPATIENT [id number] SRIRAM CARRION A 11/06 Released w/o Limitations [facility] [place] [address](Kiersten driver,A ID) [place] [address]([facility] Team B) OUTPATIENT [id number] F/U MED REFILLS BHARATI SWANSON 12/12 Released w/o Limitations [facility] [place] [address]([facility] Team [facility]) [place] [address]([facility] Team B) OUTPATIENT [id number] FOLLOW UP PER BHARATI OAKLEY 01/02 Released w/o Limitations [facility] [place] [address]([facility] Team B) [place] [address]([facility] [place],[facility]) OUTPATIENT [id number] cough/s t congest ion TRINA DARLING A 01/26 Released w/o Limitations [facility] [place] [address](F amily Emergen [facility], [facility]) [place] [address]([facility] [place],[facility]) OUTPATIENT [id number] blood in urine JORGE ARTHUR 02/01 Released w/o Limitations [facility] [place] [address](F amily Emergen [facility], [facility]) [place] [address](Guest Services Agent ecology [facility], [facility]) OUTPATIENT [id number] YEARLY PAP/WHA SC IGOR LYLES 08/28 Released w/o Limitations [facility] [place] [address](Pritesh perry gy Clinic, [facility]) [place] [address](Guest Services Agent ecology [facility], [facility]) TELE CONSULT [id number] f/u on US results IGOR LYLES. 09/05 [facility] [place] [address](Pritesh perry [facility], [facility]) [place] [address]([facility]) OUTPATIENT [id number] neck pain/st iffness HOLLY BARAHONA P 03/04 Released w/o Limitations [facility] [place] [address]([facility], [facility]) [place] [address]([facility] E) TELE CONSULT [id number] Notes Entered by: HANNY CORONEL 05 Mar 2015 1242 ------- ------- ------- ------- -- CAMOBlk No Appt w/PCM or Team PH: ASAD/CAM O DEEPTI WYLIE 03/05 [facility] [place] [address]([place] _C_Te am E) [place] [address]([facility] E) OUTPATIENT [id number] F/[facility] [place] [place] RAJ GOMEZ P 03/06 Released w/o Limitations [facility] [place] [address]([place] _[facility]_Te am E) [place] [address](Phy sical Therapy, [facility]) OUTPATIENT [id number] KRISSY BOWEN R 04/03 Released w/o Limitations [facility] [place] [address](P hysical Therapy , [facility]) [place] [address](Phy sical Therapy, [facility]) OUTPATIENT [id number] KRISSY RAMOS R 04/16 Released w/o Limitations [facility] [place] [address](P hysical Therapy , [facility]) [place] [address](Phy sical Therapy, [facility]) OUTPATIENT [id number] KRISSY RAMOS Viviana 04/17 Released w/o Limitations [facility] [place] [address](P hysical Therapy , [facility]) [place] [address](Phy sical Therapy, [facility]) OUTPATIENT [id number] KRISSY RAMOS Viviana 04/28 Released w/o Limitations [facility] [place] [address](P hysical Therapy , [facility]) [place] [address]([place] _Team E) OUTPATIENT [id number] eval of sinus infecti on NICKY AYALA MATA 06/04 Released w/o Limitations [facility] [place] [address]([place] _[facility]_Te am E) [place] [address]([place] _Team E) OUTPATIENT [id number] throat pain REDDBerny Michelle NICKY MATA 11/02 Released w/o Limitations [facility] [place] [address]([place] _[facility]_Te am E) [facility] B) OUTPATIENT [id number] 4 yearly /pap check up RAYSHAWN MONROY 02/27 Released w/o Limitations [facility]( amily Medicin e Clinic B) [facility] B) TELE CONSULT [id number] Notes Entered by: THEE TRAYLOR EE R 06 Apr 2019 1056 ------- ------- ------- ------- -- US report AMERICA MONROY 04/06 Other Not Elsewhere Classified [facility]( amily Medicin e Clinic B) [facility] B) OUTPATIENT [id number] US review RAYSHAWN MONROY 04/18 Released w/o Limitations [facility](F amily Medicin e Clinic B) [facility](Obs tetrics/G ynecology Cl Eg) OUTPATIENT [id number] Pelvic and perinea l pain ARSEN SHELBY 05/23 Released w/o Limitations [facility](O bstetri cs/Gyne cology Cl Eg) [address] [place] [address] Group(Obs tetrics/G ynecology Cl Eg) TELE CONSULT [id number] Notes Entered by: HERB MOSES 06 Jun 2019 0920 ------- ------- ------- ------- -- ARSEN Ho 06/06 [facility](O bstetri cs/Gyne cology Cl Eg) [address] [place] [address] Group(Obs tetrics/G ynecology Cl Eg) TELE CONSULT [id number] Notes Entered by: HERB MOSES 17 Jul 2019 1333 ------- ------- ------- ------- -- CASSANDRA VIVAR 07/17 [facility](O bstetri cs/Gyne cology Cl Eg) [address] [place] [address] Group(Obs tetrics/G ynecology Cl Eg) TELE CONSULT [id number] Notes Entered by: HERB MOSES 09 Aug 2019 0959 ------- ------- ------- ------- -- ARSEN HO 08/09 [facility](O bstetri cs/Gyne cology Cl Eg) [address] [place] [address] Group([facility] Team S AD/Non-AD ) OUTPATIENT [id number] ANNUAL PAP , DISCUSS XRAY NEEDED RAYSHAWN MONROY 09/13 Released w/o Limitations [facility] Team S AD/Non- AD) [address] [place] [address] Group([facility] Team S AD/Non-AD ) TELE CONSULT [id number] Notes Entered by: BEV MORALES 18 Sep 2019 1330 ------- ------- ------- ------- -- RESULTS VINCEDAMON ArrietaEvelia Crowder 09/18 Referred for Appointment [facility] Team S AD/Non- AD) [address] [place] [address]([facility] Team S AD/Non-AD ) OUTPATIENT [id number] SPEC: results RAYSHAWN MONROY 09/20 Released w/o Limitations [facility] Team S AD/Non- AD) [address] [place] [address](Obs tetrics/G ynecology Cl Eg) TELE CONSULT [id number] Notes Entered by: FAUSTINO MITCHELL 21 Sep 2019 1021 ------- ------- ------- ------- -- ARSEN Ho 09/[address] [place] [address](O bstetri cs/Gyne cology Cl Eg) [address] [place] [address]([facility] Team G AD/Non-AD ) TELE CONSULT [id number] Notes Entered by: Shaun MEDINA 21 Sep 2019 1250 ------- ------- ------- ------- -- refreq RAYSHAWN MONROY 09/21 [facility] Team G AD/Non- AD) [address] [place] [address]([facility] Team S AD/Non-AD ) TELE CONSULT [id number] Notes Entered by: BEV MORALES 04 Oct 2019 0832 ------- ------- ------- ------- -- RESULTS SKIP MCINTOSH 10/04 Released to Self Care [facility] Team S AD/Non- AD) 6130C-Af- C-375 Medgrp-[facility] [id number] Renu Padilla unspeci fied JOSHUA PCRUM 12/19 Discharge Disposition: Home or Self Care 3630C-A f-C-375 Th Medgrp- [facility] 005-375 th MEDGRP-Sc ramy Outpatient [id number] TYREL CHENG 12/19 Discharge Disposition: Home or Self Care 0055A-3 75th MED[facility]- [facility] 6130C-Af- C-375Th Medgrp-Sc ramy Between Visit [id number] Christina mcgarry 12/22 Discharge Disposition: Home or Self Care 6130C-A f-C-375 Th [facility]- [facility] Procedures Combined list of: 1) Procedures from Department of Veterans Affairs facilities going back up to thelast 18 months, not all VA non-surgical procedures are included; 2) All procedures from the Department of Defense facilities. Procedure Procedure Type Code Date Perfomer Comments Sourc e No data available for this section [facility] SIMPLE EXCISION OF OTHER LYMPHATIC STRUCTURE 994 DoD ONLINE ASSESS &MANAG SERV PROVIDE,A QUAL NONPHYS HCP TO AN ESTABLISHED PAT/GUARDIAN,NOT ORIGINAT FRM RELAT ASSESS &MANAG SERV PROVIDE W/IN THE PREV 7 DAYS,USE THE [employer] COMM NETWORK 020 DoD ONLINE ASSESS &MANAG SERV PROVIDE,A QUAL NONPHYS HCP TO AN ESTABLISHED PAT/GUARDIAN,NOT ORIGINAT FRM RELAT ASSESS &MANAG SERV PROVIDE W/IN THE PREV 7 DAYS,USE THE [employer] COMM NETWORK 019 DoD SCREENING PAPANICOLAOU SMEAR; OBTAINING, PREPARING AND CONVEYANCE OF CERVICAL OR VAGINAL SMEAR TO LABORATORY 010 DoD INFECTIOUS AGENT ANTIGEN DETECTION BY IMMUNOASSAY WITH DIRECT OPTICAL (IE, VISUAL) OBSERVATION; STREPTOCOCCUS, GROUP A 018 DoD INJECTION, DEXAMETHASONE SODIUM PHOSPHATE, 1 MG 017 DoD BRIEF EMOTIONAL/BEHAVIORA L ASSESSMENT (EG, DEPRESSION INVENTORY, ATTENTION-DEFICIT/H YPERACTIVITY DISORDER [ADHD] SCALE), WITH SCORING AND DOCUMENTATION, PER STANDARDIZED INSTRUMENT 016 [facility] NEGATIVE SCREEN FOR DEPRESSIVE SYMPTOMS CATEGORIZED BY USING A STANDARDIZED DEPRESSION SCREENING/ASSESSMEN T TOOL (MDD) 015 DoD APPLICATION OF A MODALITY TO 1 OR MORE AREAS; HOT OR COLD PACKS 015 DoD MANUAL THERAPY TECHNIQUES (EG, MOBILIZATION/ MANIPULATION, MANUAL LYMPHATIC DRAINAGE, MANUAL TRACTION), 1 OR MORE REGIONS, EACH [address] [facility] MANUAL THERAPY TECHNIQUES (EG, MOBILIZATION/ MANIPULATION, MANUAL LYMPHATIC DRAINAGE, MANUAL TRACTION), 1 OR MORE REGIONS, EACH [address] [facility] MANUAL THERAPY TECHNIQUES (EG, MOBILIZATION/ MANIPULATION, MANUAL LYMPHATIC DRAINAGE, MANUAL TRACTION), 1 OR MORE REGIONS, EACH [address] [facility] INJECTION, LORAZEPAM, [address] [facility] HANDLING AND/OR CONVEYANCE OF SPECIMEN FOR TRANSFER FROM THE OFFICE TO A LABORATORY [facility] CULTURE, PRESUMPTIVE, PATHOGENIC ORGANISMS, SCREENING ONLY [facility] SCREENING PAPANICOLAOU SMEAR; OBTAINING, PREPARING AND CONVEYANCE OF CERVICAL OR VAGINAL SMEAR TO LABORATORY 013 [facility] SCREENING PAPANICOLAOU SMEAR; OBTAINING, PREPARING AND CONVEYANCE OF CERVICAL OR VAGINAL SMEAR TO LABORATORY 009 [facility] OTHER MONITORING [facility] OTHER ARTIFICIAL RUPTURE OF MEMBRANES [facility] VAGINAL DELIVERY ONLY (WITH OR WITHOUT EPISIOTOMY AND/OR FORCEPS); [facility] DOPPLER ECHOCARDIOGRAPHY, , PULSED WAVE AND/OR CONTINUOUS WAVE WITH SPECTRAL DISPLAY; FOLLOW-UP OR REPEAT STUDY [facility] SUBSEQ CARE VISIT () [EXCLS:PATIENTS WHO ARE SEEN FOR A CONDITION UNREL TO / CARE (EG,AN UP RESPIR INFECT;PATIENTS SEEN FOR CONSULTATION ONLY,NOT FOR CONT CARE)] [facility] SUBSEQ CARE VISIT () [EXCLS:PATIENTS WHO ARE SEEN FOR A CONDITION UNREL TO / CARE (EG,AN UP RESPIR INFECT;PATIENTS SEEN FOR CONSULTATION ONLY,NOT FOR CONT CARE)] [facility] SUBSEQ CARE VISIT () [EXCLS:PATIENTS WHO ARE SEEN FOR A CONDITION UNREL TO / CARE (EG,AN UP RESPIR INFECT;PATIENTS SEEN FOR CONSULTATION ONLY,NOT FOR CONT CARE)] [facility] SUBSEQ CARE VISIT () [EXCLS:PATIENTS WHO ARE SEEN FOR A CONDITION UNREL TO / CARE (EG,AN UP RESPIR INFECT;PATIENTS SEEN FOR CONSULTATION ONLY,NOT FOR CONT CARE)] [facility] SUBSEQ CARE VISIT () [EXCLS:PATIENTS WHO ARE SEEN FOR A CONDITION UNREL TO / CARE (EG,AN UP RESPIR INFECT;PATIENTS SEEN FOR CONSULTATION ONLY,NOT FOR CONT CARE)] 007 DoD PRENAT FLW SHEET DOC,MED REC,1ST PRENAT VIS (DOC INC MIN BP,WT,URINE PROT,UTER SZ,FET HRT TONE,&EST DATE DEL). REP ALSO:DATE VIS &,IN APR FLD,DATE LMP (NOTE:IF REP 0501F,NOT NECESSARY TO REP 0500F) 007 [facility] SCREENING PAPANICOLAOU SMEAR; OBTAINING, PREPARING AND CONVEYANCE OF CERVICAL OR VAGINAL SMEAR TO LABORATORY 007 [facility] SCREENING PAPANICOLAOU SMEAR; OBTAINING, PREPARING AND CONVEYANCE OF CERVICAL OR VAGINAL SMEAR TO LABORATORY 006 DoD Internet Med Svc Qual Nonphys Healthcare Prof Estab Patient Internet Med Svc Qual Nonphys Healthcare Prof Estab Patient [id number] [facility] Preventive Med Standardized Depre ion Screening: Negative For Symptoms Preventive Med Standardized Depression Screening: Negative For Symptoms 3351F [address] [facility] Modalities Heat Hot Packs Modalities Heat Hot Packs 75174 015 KRISSY RAMOS Osteopathic Manip Treatment (OMT) 1-2 Body Regions Involved Osteopathic Manip Treatment (OMT) 1-2 Body Regions Involved 93205 015 KRISSY RAMOS Mobilization Soft Ti ue Mobilization Soft Tissue 44257 015 KRISSY RAMOS Physical Therapy: ___ Se ion Segments, 15 Minutes Each Physical Therapy: ___ Session Segments, 15 Minutes Each 97800 015 KRISSY RAMOS Physical Medicine Physical Therapy Re-Evaluation Physical Medicine Physical Therapy Re-Evaluation 38394 015 KRISSY RAMOS Mobilization Soft Ti ue Mobilization Soft Tissue 94543 015 KRISSY RAMOS Physical Therapy Mobilization Joint Physical Therapy Mobilization Joint 48868 015 KRISSY RAMOS Physical Therapy: ___ Se ion Segments, 15 Minutes Each Physical Therapy: ___ Session Segments, 15 Minutes Each 82009 015 KRISSY RAMOS Physical Medicine Physical Therapy Re-Evaluation Physical Medicine Physical Therapy Re-Evaluation 25090 015 KRISSY RAMOS Mobilization Soft Ti ue Mobilization Soft Tissue 08349 015 KRISSY RAMOS Osteopathic Manip Treatment (OMT) 1-2 Body Regions Involved Osteopathic Manip Treatment (OMT) 1-2 Body Regions Involved 33767 015 KRISSY RAMOS Physical Therapy: ___ Se ion Segments, 15 Minutes Each Physical Therapy: ___ Session Segments, 15 Minutes Each 24940 015 KRISSY RAMOS Physical Medicine Physical Therapy Re-Evaluation Physical Medicine Physical Therapy Re-Evaluation 84474 015 KRISSY RAMOS Mobilization Soft Ti ue Mobilization Soft Tissue 38419 015 KRISSY RAMOS Osteopathic Manip Treatment (OMT) 1-2 Body Regions Involved Osteopathic Manip Treatment (OMT) 1-2 Body Regions Involved 15982 015 KRISSY RAMOS Physical Therapy: ___ Se ion Segments, 15 Minutes Each Physical Therapy: ___ Session Segments, 15 Minutes Each 81693 015 KRISSY RAMOS Physical Medicine Physical Therapy Evaluation Physical Medicine Physical Therapy Evaluation 41083 015 KRISSY RAMOS Injection, lorazepam, 2 mg HOLLY ANDERSON Injection, ketorolac tromethamine, per [address] Supervised Injection Intramuscular Supervised Injection Intramuscular [address]Supervised Specimen Handling / Transfer: Office To Lab -Supervised Specimen Handling / Transfer: Office To Lab 56571 IGOR LYLES Screening papanicolaou smear; obtaining, preparing and conveyance of cervical or vaginal smear to laboratory IGOR LYLES Oropharynx Culture Streptococcus Group A Beta Hemolytic Oropharynx Culture Streptococcus Group A Beta Hemolytic 40177 TRINA DARLING Screening papanicolaou smear; obtaining, preparing and conveyance of cervical or vaginal smear to laboratory 013 IRMA RIOS Cervical or vaginal cancer screening; pelvic and clinical breast examination IRMA RIOS Screening papanicolaou smear; obtaining, preparing and conveyance of cervical or vaginal smear to laboratory [address] [facility] Screening papanicolaou smear; obtaining, preparing and conveyance of cervical or vaginal smear to laboratory [address] [facility] Doppler Echocardiography As Follow-Up Doppler Echocardiography As Follow-Up [address] [facility] OB Services Antepartum Care Only Subsequent Single Visit OB Services Antepartum Care Only Subsequent Single Visit 0502F [address] [facility] OB Services Antepartum Care Only Subsequent Single Visit OB Services Antepartum Care Only Subsequent Single Visit 0502F 007 ARFMARGARET, ABDOULAYE [facility] OB Services Antepartum Care Only Subsequent Single Visit OB Services Antepartum Care Only Subsequent Single Visit 0502F 007 ARFAA, KAIVON DoD OB Services Antepartum Care Only Subsequent Single Visit OB Services Antepartum Care Only Subsequent Single Visit 0502F 007 ARFAA, KAIVON DoD OB Services Antepartum Care Only Subsequent Single Visit OB Services Antepartum Care Only Subsequent Single Visit 0502F 007 ARFAA, KAIVON [facility] OB Services Antepartum Care Only Subsequent Single Visit OB Services Antepartum Care Only Subsequent Single Visit 0502F 007 ARFAA, KAIVON [facility] OB Services Antepartum Care Only 1st Visit, With Flowsheet OB Services Antepartum Care Only 1st Visit, With Flowsheet 0501F 007 ARFAA, KAIVON [facility] Ultrasound Trans-[place]ag[place] [address] 007 ARF, KAIVON [facility] Screening papanicolaou smear; obtaining, preparing and conveyance of cervical or vaginal smear to laboratory [address] [facility] Screening papanicolaou smear; obtaining, preparing and conveyance of cervical or vaginal smear to laboratory [address] [facility] Internet Med [facility] Qual Nonphys Healthcare Prof Estab Patient Internet Med [facility] Qual Nonphys Healthcare Prof Estab Patient [address] [facility] Social History Combined list of available smoking, tobacco, and other social history from Department of Defense and Veterans Affairs facilities. Social History Type Response Date Comment [facility] e Tobacco Cigarette use: Never-cigarette user. Other Tobacco use: Never-other tobacco user (not cigarettes). Ambulatory Pharma cy Sexual Orientation Ambula tory Pharmacy Gender identity Ambulator y Pharmacy Sex Representation Female (finding) Unknown Organization This section is an empty social history section. DoD Assessment and Plan Combined list of future care activities from Department of Defense and Veterans Affairs facilities (e.g., assessment and plan notes, appointments, orders, and referrals). Additional future care activities may be listed in the Plan of Care section. Result Assessment and Plan Date Source Assessment and Plan Extracted from:Title : [facility] [place] [place] Author: TYREL GARCIAS MD Date: 12/20/23 1. F lushing Acute, uncontrolled. Presentation of erythema, telangiectasias on centrofacial, neck, and upper chest distribution as well as triggers with spicy, alcohol, and sweet foods as well as age, is consistent with rosacea at this time. Given significant family history of hypothyroidism as well as?some of the symptoms for hypothyroidism t miguel, will a lso obtain lab testing for it a s well as CBC t o rule out hemochromatosis. - Order topical metronidazole 1% cream once a day - Order cbc, tsh - Advised patient to follow-up in clinic if signs of worsening redness or not improving with treatment - Can follow-up with derm for other presenting complaint if not improving prior to being evaluated by them as well. - F/u with lab results - Signed out with Dr. Kita Long. Ordered: metroNIDAZOLE topical(metroNIDAZOLE 1% topical cream), 1 appl(s), Topical, Daily, # 30 g, 3 total refill(s), Maintenance, 1 appl(s) Topical Daily, Pharmacy: [facility] #[id number] [External Rx] CBC w/ Diff 2. L ipoma Chronic, uncontrolled. Firm, mobile, non-tender nodules on the scalp that are increasing in size, which is likely reactive to hormone production. Presentation is consistent with lipomas. Can also consider pilar cysts at this time. P atient would like referral at this time for further evaluation. - Referral to dermatology placed Ordered: Referral Request 2.0 - [facility] Orders: *Differential Automated TSH w/ Reflex FT4 and Total T3 Capt Tyrel Garcias MD Basting Machine Operator, PGY-1 [facility], [place], [place] Addendum by FABRIZIO KATZ MD on December 22, 2023 11:36:35 CDT I was present and available in the family medicine clinic to discuss the patient's care during the time of the appointment. Case was discussed between the resident and a teachroom attending at the time of the appointment. I agree with the resident's assessment and plan as documented. Will sign note to facilitate documentation closure. Fabrizio Katz MD, Faculty, [facility], [facility], Attending Physician 12/03/2024 [id number] [facility] Functional Status Combined list of recent functional and cognitive assessments recorded at [employer] [facility] Functional [place] Measurement (FIM) Scale: 1 = Total Assistance (Subject = 0% +), 2 = Maximal Assistance (Subject = 25% +), 3 = Moderate Assistance (Subject = 50% +), 4 = Minimal Assistance (Subject = 75% +), 5 = Supervision, 6 = Modified [place] (Device), 7 = Complete [place] (Timely, Safely). Assessment Date/Time Source Assessment Type Assessment Skill Assessment Score Assessment Details No data available for this section
--- OUTSIDE RECORDS SUMMARY | 2024-12-03 09:54 | XMS_ITS | Continuity of Care Document ---
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 Topica l (on the skin) Discont inued 12/23/20232023 30.0 6130C-A f-C-[address] [facility] metroNIDAZO LE 1% topical gel See Instruct ions, 1 appl(s) Topical Daily apply a thin film to affected area after washing, # 60 g, 1 total refill(s ), [facility], [facility] : [id number] Ordered 2023 60.0 6130C-A f-C-[address] [facility] MODERNA COVID-19 VACCINE (EUA) (COVID-19 vaccine, mRNA, [id number], LNP-S (Moderna)/P F), 100MCG/0.5, MODERNA COVID-19 VACCINE (EUA) (COVID-1 9 vaccine, mRNA, cx-10299 4, LNP-S (Moderna )/PF), 100MCG/0 .5, Start [...] Drug allergy (disorder) active 01/17/2008 [facility] Immunizations Combined list of available immunizations from the Department of Defense and Veterans Affairs facilities. 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 (MOD) Not Given COVID-19, mRNA, LNP-S, [...] 2009 zzRig ht Arm [id number] PrePay pa complet ed hepatitis B adult vaccine 01/01/10 Given Ambulat ory Pharmac y hepatitis B vaccine, adult dosage 2 2009 Unknown, Provider [id number] 43 Smith[employer]uka (SKB) complet ed hepatitis B vaccine, adult dosage DoD tuberculin purified protein derivative 2009 zzLef t Arm [id number] sanofi pasteur complet ed Patient Tolerance : Negative Ambulat ory Pharmac y tuberculin skin test; purified protein derivative solution, intradermal 1 2009 Unknown, Provider [id number] Sanofi Pasteur (PMC) complet ed tuberculi n skin test; purified protein derivativ e solution, intraderm al DoD tuberculin purified protein derivative 2006 zzLef t Arm [id number] sanofi pasteur complet ed Patient Tolerance : Negative Ambulat ory Pharmac y tuberculin skin test; purified protein derivative solution, intradermal 1 2006 Unknown, Provider [id number] Sanofi Pasteur (PMC) complet ed tuberculi [...] > 4.2 uIU/mL 5600A-U SAFSAM EPILAB Hematology Sullivan Absolute 0.5 x10^3/ mcL 0.2 - 0.8103 12/19 N 0055A-[address] [place] [address] Hematology Baso Absolute 0.0 x10^3/ mcL 0.0 - 0.1103 12/19 N 0055A-[address] [place] [address] Hematology Monocyte % Auto 6 % 1 - 12 12/19 N 0055A-[address] [place] [address] Hematology Basophil % Auto 0.6 % 0.0 - 2.5 12/19 N 0055A-[address] [place] [address] Hematology Neutro Absolute 5.1 x10^3/ mcL 2.0 - 7.0103 12/19 N 0055A-[address] [place] [address] Hematology Eos Absolute 0.5 x10^3/ mcL 0.0 - 0.7103 12/19 N 0055A-[address] [place] [address] Hematology Eosinophil % Auto 5 % 0 - 5 12/19 N 0055A-[address] [place] [address] Hematology Lymphocyte % Auto 30.5 % 20.0 - 40.0 12/19 N 0055A-[address] [place] [address] Lymph Absolute 2.7 x10^3/ mcL 1.2 - 4.0103 12/[address] [place] [address] Neutrophil % Auto 57.2 % 46.0 - 77.0 12/[address] [place] [address] MCH 29 pg 28 - 33 12/[address] [place] [address] Platelets 312.0 x10^3/ mcL 150.0 - 450.0103 12/[address] [place] [address] Hematocrit 40 % 34 - 46 12/[address] [place] [address] RBC 4.6 x10^6/ mcL 3.6 - 5.0106 12/[address] [place] [address] RDW 12.0 % 11.0 - 14.9 12/[address] [place] [address] MCHC 34.1 g/dL 33.0 - 36.5 12/[address] [place] [address] Hemoglobin 13.6 g/dL 11.0 - 15.0 12/[address] [place] [address] MCV 86 fL 80 - 97 12/[address] [place] [address] Differentia l? Auto ( 4 3:38 PM) 12/[address] [place] [address] MPV 9.9 fL 7.4 - 10.4 12/[address] [place] [address] WBC 8.9 x10^3/ mcL 4.0 - 11.0103 12/[address] [place] [address] Vital Signs Combined list of inpatient and outpatient Vital Signs from Department of Defense and Veterans Affairs, ranging from 12 months to all on record, depending upon the facility. Vital Sign Value Date Comments Source Peripheral Pulse Rate 79 bpm 12/20/2023 19:22:00 9051B-Kl-T-375Th [facility] Temperature Oral 37.2 Mena 12/20/2023 19:22:00 7205R-Wu-J-375Th [facility] Respiratory Rate 14 br/min 12/20/2023 19:22:00 6207V-Zj-F-375Th [facility] BP Site Left arm 12/20/2023 19:22:00 6130C -Af-C-375Th [facility] Mean Arterial Pressure, Calc 99 mm[Hg] 12/20/2023 19:22:00 4973Q-Yo-J-3 75Th [facility] Blood Pressure Manual Automatic 12/20/2023 19:22:00 2417Y-Nu-T-375Th [facility] Systolic Blood Pressure 130 mm[Hg] 12/20/2023 19:22:00 4509Q-Bz-I-375Th [facility] Diastolic Blood Pressure 83 mm[Hg] 12/20/2023 19:22:00 0922D-Rm-G-375Th [facility] Encounters Combined list of: 1) Encounters from Department of Veterans Affairs facilities going backup to the last 18 months, not all VA inpatient encounters are included; 2) Encounters from the Department of [facility] facilities going backup to 280 months. Location Location Details Encounter Type Encounter Number Reason For Visit Attending Provider ADM Date DC Date Status Disposition Source [employer] [facility] [place] [id number] [place] Box 12/09 Released w/o Limitations [employer](F amily Practic e Contrac t) [facility](K A Gynecolog y Clinic) OUTPATIENT [id number] annual IRMA RDZ 06/17 Released w/o Limitations [facility] ( Gynecol ogy Clinic) [facility] Gynecolog y Clinic) OUTPATIENT [id number] std councel ing IRMA RDZ 06/27 Released w/o Limitations [facility] ( Gynecol ogy Clinic) [facility](K A Gynecolog y Clinic) OUTPATIENT [id number] re-pap/ pap DEV Moore 10/25 Released w/o Limitations [facility] ( Gynecol ogy Clinic) [facility](K A Gynecolog y Clinic) OUTPATIENT [id number] JOAN VILLANUEVA 11/13 Released w/o Limitations [facility] (KA Gynecol ogy Clinic) [facility](I nternal Medicine Clinic) OUTPATIENT [id number] OB clinic WALI LEMOS 11/23 Released w/o Limitations [facility] (Cotton Factor al Medicin e Clinic) [facility](O b/Juvenile Court Judge Clinic) OUTPATIENT [id number] Pregnan cy Test Positiv e KELLY OLIVO 11/23 Released w/o Limitations [facility] (Gis Coordinator Clinic) [facility](O b/[facility] Clinic) OUTPATIENT [id number] ARFAA, KAIVON 12/09 Released w/o Limitations [facility] (Gis Coordinator Clinic) [facility](O b/Juvenile [facility] Judge Clinic) OUTPATIENT [id number] paul f/u 15 wks ARFAA, KAIVON 02/06 Released w/o Limitations [facility] (Gis Coordinator Clinic) [facility](O b/Ju[facility] Judge Clinic) OUTPATIENT [id number] paul ARFAA, KAIVON 03/22 Released w/o Limitations [facility] (Gis Coordinator Clinic) [facility](O b/Juvenile Court Judge Clinic) OUTPATIENT [id number] ob fu 27 weeks ARFAA, KAIVON 04/26 Released w/o Limitations [facility] (Gis Coordinator Clinic) [facility](O b/Ju[facility] Judge Clinic) OUTPATIENT [id number] OB FU ARFAA, KAIVON 05/24 Released w/o Limitations [facility] (Gis Coordinator Clinic) [facility](O b/Juvenile [facility] Judge Clinic) OUTPATIENT [id number] ob f/u ARFAA, KAIVON 06/06 Released w/o Limitations [facility] (Gis Coordinator Clinic) [facility](O b/Juvenile [facility] Judge Clinic) OUTPATIENT [id number] ARFAA, KAIVON 06/19 Released w/o Limitations [facility] (Gis Coordinator Clinic) [facility](O b/Ju[facility] Judge Clinic) OUTPATIENT [id number] paul 37 weeks ARFAA, KAIVON 06/29 Released w/o Limitations [facility] (Gis Coordinator Clinic) [facility](O b/Ju[facility] Judge Clinic) OUTPATIENT [id number] ob fu 38 weeks ARFAA, KAIVON 07/04 Released w/o Limitations [facility] (Gis Coordinator Clinic) [facility](O b/Ju[facility] Clinic) OUTPATIENT [id number] OB F/U GRIFFIN ABARCA 07/11 Released w/o Limitations [facility] (Gis Coordinator Clinic) [facility] DIRECT TO [facility] FROM OTHER THAN ER OR APU [id number] ARFAA, KAIVON 07/11 DISCHARGED HOME [facility](O b/Juvenile Court Judge Clinic) OUTPATIENT [id number] postpar akiko ARFAA, KAIVON 08/18 Released w/o Limitations [facility] (Gis Coordinator Clinic) [facility](K cathy Tsunami Element) OUTPATIENT [id number] nausea dizzyne ss, sharp pain with headach es LADONNA MCDUFFIE H 10/04 Released w/o Limitations [facility] ([place] [employer] ) [facility](K cathy Ichiban Element) TELE CONSULT [id number] rad results HIEU MONTOYA 10/09 [facility] ([place] [employer] ) [facility](K cathy [employer] Element) OUTPATIENT [id number] back pain x 2wks DEV AMAYA 01/21 Released w/o Limitations [facility] ([place] [employer] ) [facility](K A Gynecolog y Clinic) OUTPATIENT [id number] BC RefWHIT Banuelos 04/18 Released w/o Limitations [facility] (KA Gynecol ogy Clinic) [facility](K cathy [employer]) OUTPATIENT [id number] issue w/ inconte nace after giving in herbert sandoval provide r CONSTANTIN MAC 04/24 Released w/o Limitations [facility] ([place] [employer] ) [facility](K cathy [employer]) OUTPATIENT [id number] sore throat; hard to breathe in this morning ANDRIY AMADOR 05/16 Released w/o Limitations [facility] ([place] [employer] ) [facility](U rology Clinic) OUTPATIENT [id number] CYSTOCE TRUNG MIRANDA 05/20 Released w/o Limitations [facility] (Urolog y Clinic) [facility](K A Gynecolog y Clinic) OUTPATIENT [id number] annual YASMIN RANGEL 09/17 Released w/o Limitations [facility] ( Gynecol ogy Clinic) [facility](K A Gynecolog y Clinic) TELE CONSULT [id number] LAB RESULTS ADITYA PATTY 10/01 [facility] ( Gynecol ogy Clinic) [facility](K cathy [employer]) OUTPATIENT [id number] Torn toe nail ILA HOOVER W 12/31 Released w/o Limitations [facility] ([place] [employer] ) [facility](K cathy [employer]) OUTPATIENT [id number] F/u for torn great toe nail ILA HOOVER W 01/07 Released w/o Limitations [facility] ([place] [employer] ) [facility](K cathy [employer]) TELE CONSULT [id number] no routine appt CATIE PALMA 01/21 [facility] ([place] [employer] ) [facility](K cathy [employer]) OUTPATIENT [id number] neck and shoulde r pain ILA HOOVER W 01/30 Released w/o Limitations [facility] ([place] [employer] ) [facility](K cathy [employer]) OUTPATIENT [id number] f/u neck and l shoulde r pain ILA HOOVER W 02/06 Released w/o Limitations [facility] ([place] [employer] ) [facility] ilana Practice Blue) TELE CONSULT [id number] New Patient In-Proc ANDRIY Irwin 03/28 [facility](F amily Practic e Blue) [facility] ilana Practice Red) OUTPATIENT [id number] rash off/on for a month ANDRIY BUENO 08/21 Released w/o Limitations [facility](F amily Practic e Red) [facility] ilana Practice Red) TELE CONSULT [id number] lab results NILES MUNOZ 08/22 [facility](F amily Practic e Red) [facility]) OUTPATIENT [id number] annual pap exam LOYDA HALL 09/08 Released w/o Limitations [employer](G yn Clinic) [employer](Fam ilana Practice Red) OUTPATIENT [id number] f/u for ANDRIY Wing 09/11 Released w/o Limitations [employer](F amily Practic e Red) [facility](Fam ilana Practice Red) TELE CONSULT [id number] CT results JOLLY MAURO 10/02 [facility](F amily Practic e Red) [facility](Fam ilana Practice Red) TELE CONSULT [id number] Pt has not rec'd shampoo via nonform ulary ANDRIY BUENO 10/13 [facility](F amily Practic e Red) [facility](Fam ilana Practice Red) OUTPATIENT [id number] would like to talk to PCM about getting tubes tied ANDRIY BUENO 12/26 Released w/o Limitations [facility](F amily Practic e Red) [facility](Exc eptional Family Mbr Program) TELE CONSULT [id number] Notes Entered by: Génesis SLAUGHTER 14 Jul 2012 1158 ------- ------- ------- ------- -- Medical record review for relocat NIHARIKA Galo 07/14 [facility](E xceptio nal Family Mbr Program ) [facility](War rio Operation al Medicine D) OUTPATIENT [id number] discuss issues JACINTA EAST 07/18 Released w/o Limitations [facility](W arrior Operati onal Medicin e D) [facility](Exc eptional Family Mbr Program) OUTPATIENT [id number] Notes Entered by: PATRICIA PARDO 25 Jul 2012 1533 ------- ------- ------- ------- -- Medical Sneha ce Appoint NIHARIKA Ariza 07/25 Released w/o Limitations [facility](E xceptio nal Family Mbr Program ) [place] [address]([facility]) OUTPATIENT [id number] Notes Entered by: NEL SPENCER MA TTHEW C 31 Aug 2012 1305 ------- ------- ------- ------- -- lower back pain PHONGTRINA A 08/31 Released w/o Limitations [facility] [place] [address]([facility]) [facility] [place] [place] [address](Juvenile [address] Judge ecology [facility], [facility]) OUTPATIENT [id number] IRMA FLEMING 09/08 Released w/o Limitations [facility] [place] [address](G [facility]) [facility] [place] [address](Katherine olivo [facility] Team B) OUTPATIENT [id number] EVAL FOR BUMPS TO SCALP.. .LACKLA CRISTOBAL_[facility]_ TEAM B/[facility] BHARATI SWANSON 09/19 Released w/o Limitations [facility] [place] [address](Nitesh freeman [facility] Team B) [facility] [place] [address](Beh avioral th [facility]) OUTPATIENT [id number] initial JETT Suero 09/25 Released w/o Limitations [facility] [place] [address](B ehavior al th [facility]) [facility] [place] [address](Beh avioral th [facility]) OUTPATIENT [id number] f/u please give FARNAZ Hays 10/11 Released w/o Limitations [facility] [place] [address](B ehavior al [facility]) [facility] [place] [address](Beh avioral th [facility]) OUTPATIENT [id number] f/u please give SAFIA James 11/03 Released w/o Limitations [facility] [address](B ehavior al [facility] Med [facility]) [facility] [place] [address](Franck matology, [facility]) OUTPATIENT [id number] SRIRAM CARRION A 11/06 Released w/o Limitations [facility] [place] [address](Kiersten driver,[place]) [facility] [place] [address]([facility]ly [facility] Team B) OUTPATIENT [id number] F/U MED REFILLS BHARATI SWANSON 12/12 Released w/o Limitations [facility] [place] [address](L [facility] Team B) [facility] [place] [address]([facility] Team B) OUTPATIENT [id number] FOLLOW UP PER BHARATI OAKLEY 01/02 Released w/o Limitations [facility] [place] [address]([facility] Team B) [facility] [place] [address]([facility] Emergency [place],[facility]) OUTPATIENT [id number] cough/s t congest ion TRINA DARLING A 01/26 Released w/o Limitations [facility] [place] [address](F amily [facility], [facility]) [facility] [place] [address]([facility] [place],[facility]) OUTPATIENT [id number] blood in urine JORGE ARTHUR 02/01 Released w/o Limitations [facility] [place] [address](F amily [facility], [facility]) [facility] [place] [address](Ju[address] Judge ecology [facility], [facility]) OUTPATIENT [id number] YEARLY PAP/WHA SC IGOR LYLES 08/28 Released w/o Limitations [facility] [place] [address](Pritesh perry gy Clinic, [facility]) [facility] [place] [address]([address] Judge ecology [facility], [facility]) TELE CONSULT [id number] f/u on US results IGOR LYLES. 09/05 [facility] [place] [address](Pritesh perry [facility], [facility]) [facility] [place] [address]([facility]) OUTPATIENT [id number] neck pain/st iffness HOLLY BARAHONA P 03/04 Released w/o Limitations [facility] [place] [address]([facility], [facility]) [facility] [place] [address]([facility] [place] TELE CONSULT [id number] Notes Entered by: HANNY CORONEL 05 Mar 2015 1242 ------- ------- ------- ------- -- CAMOBlk No Appt w/PCM or Team PH: ASAD/CAM O DEEPTI WYLIE 03/05 [facility] [place] [address]([place] _C_Te am E) [facility] [place] [address]([facility] [place]) OUTPATIENT [id number] F/U [facility] X-Ray results RAJ GOMEZ P 03/06 Released w/o Limitations [facility] [place] [address]([place] _[facility]_Te am E) [facility] [place] [address](Phy sical Therapy, [facility]) OUTPATIENT [id number] KRISSY BOWEN R 04/03 Released w/o Limitations [facility] [place] [address](P hysical Therapy , [facility]) [facility] [place] [address](Phy sical Therapy, [facility]) OUTPATIENT [id number] KRISSY RAMOS R 04/16 Released w/o Limitations [facility] [place] [address](P hysical Therapy , [facility]) [facility] [place] [address](Phy sical Therapy, [facility]) OUTPATIENT [id number] KRISSY RAMOS Viviana 04/17 Released w/o Limitations [facility] [place] [address](P hysical Therapy , [facility]) [facility] [place] [address](Phy sical Therapy, [facility]) OUTPATIENT [id number] KRISSY RAMOS Viviana 04/28 Released w/o Limitations [facility] [place] [address](P hysical Therapy , [facility]) [facility] [place] [address]([place] _Team E) OUTPATIENT [id number] eval of sinus infecti on NICKY AYALA MATA 06/04 Released w/o Limitations [facility] [place] [address]([place] _[facility]_Te am E) [facility] [place] [address]([place] _Team E) OUTPATIENT [id number] throat pain REDDBerny Michelle NICKY MATA 11/02 Released w/o Limitations [facility] [place] [address]([place] _[facility]_Te am E) [facility] Medicine [facility] B) OUTPATIENT [id number] 4 yearly /pap check up RAYSHAWN MONROY 02/27 Released w/o Limitations [facility]( amily Medicin e Clinic B) [facility] B) TELE CONSULT [id number] Notes Entered by: THEE TRAYLOR EE R 06 Apr 2019 1056 ------- ------- ------- ------- -- US report AMERICA MONROY 04/06 Other Not Elsewhere Classified [facility]( amily Medicin e Clinic B) [facility] Medicine [facility] B) OUTPATIENT [id number] US review RAYSHAWN MONROY 04/18 Released w/o Limitations [facility](F amily Medicin e Clinic B) [facility](Obs tetrics/G ynecology Cl Eg) OUTPATIENT [id number] Pelvic and perinea l pain ARSEN SHELBY 05/23 Released w/o Limitations [facility](O bstetri cs/Gyne cology Cl Eg) [address] [place] [address] Group(Obs tetrics/G ynecology Cl Eg) TELE CONSULT [id number] 1 Notes Entered by: HERB MOSES 06 Jun 2019 0920 ------- ------- ------- ------- -- ARSEN Ho 06/06 [facility](O bstetri cs/Gyne cology Cl Eg) [address] [place] [address] Group(Obs tetrics/G ynecology Cl Eg) TELE CONSULT [id number] Notes Entered by: HERB MOSES 17 Jul 2019 1333 ------- ------- ------- ------- -- CASSANDRA VIVAR 07/17 [facility](O bstetri cs/Gyne cology Cl Eg) [address] [place] [address] Group(Obs tetrics/G ynecology Cl Eg) TELE CONSULT [id number] Notes Entered by: HERB MOSES 09 Aug 2019 0959 ------- ------- ------- ------- -- ARSEN HO 08/09 [facility](O bstetri cs/Gyne cology Cl Eg) [address] [place] [address] Group([facility] Team S AD/Non-AD ) OUTPATIENT [id number] ANNUAL PAP , DISCUSS XRAY NEEDED RAYSHAWN MONROY 09/13 Released w/o Limitations [facility] Team S AD/Non- AD) [address] [place] [address] Group([facility] Team S AD/Non-AD ) TELE CONSULT [id number] Notes Entered by: BEV MORALES 18 Sep 2019 1330 ------- ------- ------- ------- -- RESULTS VINCEDAMON ArrietaEvelia Crowder 09/18 Referred for Appointment [facility] CENTER Team S AD/Non- AD) [address] [place] [address]([facility] Team S AD/Non-AD ) OUTPATIENT [id number] SPEC: results RAYSHAWN MONROY 09/20 Released w/o Limitations [facility] Team S AD/Non- AD) [address] [place] [address](Obs tetrics/G ynecology Cl Eg) TELE CONSULT [id number] Notes Entered by: FAUSTINO MITCHELL 21 Sep 2019 1021 ------- ------- ------- ------- -- ARSEN Ho 09/[address] [place] [address](O bstetri cs/Gyne cology Cl Eg) [address] [place] [address]([facility] Team G AD/Non-AD ) TELE CONSULT [id number] Notes Entered by: Shaun MEDINA 21 Sep 2019 1250 ------- ------- ------- ------- -- refreq RAYSHAWN MONROY 09/21 [facility] Team G AD/Non- AD) [address] [place] [address]([facility] Team S AD/Non-AD ) TELE CONSULT [id number] Notes Entered by: BEV MORALES 04 Oct 2019 0832 ------- ------- ------- ------- -- RESULTS SKIP MCINTOSH 10/04 Released to Self Care [facility] Team S AD/Non- AD) [id number]- [id number] Medgrp-[facility] [id number] Renu Padilla unspeci fied JOSHUA PCRUM 12/19 Discharge Disposition: Home or Self Care [id number]-A f-C-375 Th Medgrp- Jett 005-375 th MEDGRP-Sc ramy Outpatient [id number] TYREL CHENG 12/19 Discharge Disposition: Home or Self Care 0055A-3 75th MEDGRP- [place]ett 6130C-Af- C-375Th Medgrp-Sc ramy Between Visit [id number] Christina mcgarry 12/22 Discharge Disposition: Home or [...] PROVIDE W/IN THE PREV 7 DAYS,USE THE [facility] [employer] 020 DoD ONLINE ASSESS &MANAG SERV PROVIDE,A QUAL NONPHYS HCP TO AN ESTABLISHED PAT/GUARDIAN,NOT ORIGINAT FRM RELAT ASSESS &MANAG SERV PROVIDE W/IN THE PREV 7 DAYS,USE THE [employer] 019 DoD SCREENING [place] SMEAR; [...] SCORING AND DOCUMENTATION, PER STANDARDIZED INSTRUMENT 016 [facility] NEGATIVE SCREEN FOR DEPRESSIVE SYMPTOMS CATEGORIZED BY USING A STANDARDIZED DEPRESSION SCREENING/ASSESSMEN T TOOL (MDD) 015 DoD APPLICATION OF A MODALITY TO 1 OR MORE AREAS; HOT OR COLD PACKS 015 DoD MANUAL THERAPY TECHNIQUES (EG, MOBILIZATION/ MANIPULATION, MANUAL LYMPHATIC DRAINAGE, MANUAL TRACTION), 1 OR MORE REGIONS, EACH 15 MINUTES 09 [facility] MANUAL THERAPY TECHNIQUES (EG, MOBILIZATION/ MANIPULATION, MANUAL LYMPHATIC DRAINAGE, MANUAL TRACTION), 1 OR MORE REGIONS, EACH 15 MINUTES [facility] MANUAL THERAPY TECHNIQUES (EG, MOBILIZATION/ MANIPULATION, MANUAL LYMPHATIC DRAINAGE, MANUAL TRACTION), 1 OR MORE REGIONS, EACH 15 MINUTES [facility] INJECTION, LORAZEPAM, 2 MG [facility] HANDLING AND/OR CONVEYANCE OF SPECIMEN FOR TRANSFER FROM THE OFFICE TO A LABORATORY [facility] CULTURE, PRESUMPTIVE, PATHOGENIC ORGANISMS, SCREENING ONLY [facility] SCREENING PAP[place]ICOLAOU SMEAR; OBTAINING, PREPARING AND CONVEYANCE OF CERVICAL OR VAGINAL SMEAR TO LABORATORY 013 [facility] SCREENING PAPANICOLAOU SMEAR; OBTAINING, PREPARING AND CONVEYANCE OF CERVICAL OR VAGINAL SMEAR TO LABORATORY 009 [facility] OTHER MONITORING [facility] OTHER ARTIFICIAL RUPTURE OF MEMBRANES [facility] VAGINAL DELIVERY ONLY (WITH OR WITHOUT EPISIOTOMY AND/OR FORCEPS); [facility] DOPPLER ECHOCARDIOGRAPHY, , PULSED WAVE AND/OR CONTINUOUS WAVE WITH SPECTRAL DISPLAY; FOLLOW-UP OR REPEAT STUDY [facility] SUBSEQ CARE VISIT () [EXCLS:PATIENTS WHO ARE SEEN FOR A CONDITION UNREL TO / CARE (EG,AN UP RESPIR INFECT;PATIENTS SEEN FOR CONSULTATION ONLY,NOT FOR CONT CARE)] [facility] SUBSEQ CARE VISIT () [EXCLS:PATIENTS WHO ARE SEEN FOR A CONDITION UNREL TO / CARE (EG,AN UP RESPIR INFECT;PATIENTS SEEN FOR CONSULTATION ONLY,NOT FOR CONT CARE)] [facility] SUBSEQ CARE VISIT () [EXCLS:PATIENTS WHO ARE SEEN FOR A CONDITION UNREL TO / CARE (EG,AN UP RESPIR INFECT;PATIENTS SEEN FOR CONSULTATION ONLY,NOT FOR CONT CARE)] [facility] SUBSEQ CARE VISIT () [EXCLS:PATIENTS WHO ARE SEEN FOR A CONDITION UNREL TO / CARE (EG,AN UP RESPIR INFECT;PATIENTS SEEN FOR CONSULTATION ONLY,NOT FOR CONT CARE)] [facility] SUBSEQ CARE VISIT () [EXCLS:PATIENTS WHO ARE SEEN FOR A CONDITION UNREL TO / CARE (EG,AN UP RESPIR INFECT;PATIENTS SEEN FOR CONSULTATION ONLY,NOT FOR CONT CARE)] 007 DoD PRENAT FLW SHEET DOC,MED REC,1ST PRENAT VIS (DOC INC MIN BP,WT,URINE PROT,UTER SZ,FET HRT TONE,&EST DATE DEL). REP ALSO:DATE VIS &,IN APR FLD,DATE LMP (NOTE:IF REP 0501F,NOT NECESSARY TO REP 0500F) 007 [facility] SCREENING PAPANICOLAOU SMEAR; OBTAINING, PREPARING AND CONVEYANCE OF CERVICAL OR VAGINAL SMEAR TO LABORATORY 007 [facility] SCREENING PAPANICOLAOU SMEAR; OBTAINING, PREPARING AND CONVEYANCE OF CERVICAL OR VAGINAL SMEAR TO LABORATORY 006 DoD [employer] [facility] Prof Estab Patient [employer] [facility] Prof Estab Patient [id number] RAYSHAWN MONROY [facility] Preventive Med Standardized Depre ion Screening: Negative For Symptoms Preventive Med Standardized Depression Screening: Negative For Symptoms [id number] 015 NICKY SAPP [facility] Modalities Heat Hot Packs Modalities Heat Hot Packs 98385 015 KRISSY RAMOS Osteopathic Manip Treatment (OMT) 1-2 Body Regions Involved Osteopathic Manip Treatment (OMT) 1-2 Body Regions Involved 80143 015 KRISSY RAMOS Mobilization Soft Ti ue Mobilization Soft Tissue 32296 015 KRISSY RAMOS Physical Therapy: ___ Se ion Segments, 15 Minutes Each Physical Therapy: ___ Session Segments, 15 Minutes Each 52118 015 KRISSY RAMOS Physical Medicine Physical Therapy Re-Evaluation Physical Medicine Physical Therapy Re-Evaluation 32561 015 KRISSY RAMOS Mobilization Soft Ti ue Mobilization Soft Tissue 50104 015 KRISSY RAMOS Physical Therapy Mobilization Joint Physical Therapy Mobilization Joint 43022 015 KRISSY RAMOS Physical Therapy: ___ Se ion Segments, 15 Minutes Each Physical Therapy: ___ Session Segments, 15 Minutes Each 84973 015 KRISSY RAMOS Physical Medicine Physical Therapy Re-Evaluation Physical Medicine Physical Therapy Re-Evaluation 69951 015 KRISSY RAMOS Mobilization Soft Ti ue Mobilization Soft Tissue 87967 015 KRISSY RAMOS Osteopathic Manip Treatment (OMT) 1-2 Body Regions Involved Osteopathic Manip Treatment (OMT) 1-2 Body Regions Involved 87753 015 KRISSY RAMOS Physical Therapy: ___ Se ion Segments, 15 Minutes Each Physical Therapy: ___ Session Segments, 15 Minutes Each 99963 015 KRISSY RAMOS Physical Medicine Physical Therapy Re-Evaluation Physical Medicine Physical Therapy Re-Evaluation 48323 015 KRISSY RAMOS Mobilization Soft Ti ue Mobilization Soft Tissue 96765 015 KRISSY RAMOS Osteopathic Manip Treatment (OMT) 1-2 Body Regions Involved Osteopathic Manip Treatment (OMT) 1-2 Body Regions Involved 24120 015 KRISSY RAMOS Physical Therapy: ___ Se ion Segments, 15 Minutes Each Physical Therapy: ___ Session Segments, 15 Minutes Each 59151 015 KRISSY RAMOS Physical Medicine Physical Therapy Evaluation Physical Medicine Physical Therapy Evaluation 86016 015 KRISSY RAMOS Injection, lorazepam, 2 mg HOLLY ANDERSON Injection, ketorolac tromethamine, per [address] Supervised Injection Intramuscular Supervised Injection Intramuscular [address]Supervised Specimen Handling / Transfer: Office To Lab -Supervised Specimen Handling / Transfer: Office To Lab 44400 IGOR LYLES Screening papanicolaou smear; obtaining, preparing and conveyance of cervical or vaginal smear to laboratory IGOR LYLES Oropharynx Culture Streptococcus Group A Beta Hemolytic Oropharynx Culture Streptococcus Group A Beta Hemolytic 28721 TRINA DARLING Screening papanicolaou smear; obtaining, preparing and conveyance of cervical or vaginal smear to laboratory 013 IRMA RIOS Cervical or vaginal cancer screening; pelvic and clinical breast examination IRMA RIOS Screening papanicolaou smear; obtaining, preparing and conveyance of cervical or vaginal smear to laboratory 010 LOYDA HALL [facility] Screening papanicolaou smear; obtaining, preparing and conveyance of cervical or vaginal smear to laboratory 009 YASMIN RANGEL [facility] Doppler Echocardiography As Follow-Up Doppler Echocardiography As Follow-Up 17366 007 GRIFFIN ABARCA [facility] OB Services Antepartum Care Only Subsequent Single Visit OB Services Antepartum Care Only Subsequent Single Visit 0502F 007 GRIFFIN ABARCA [facility] OB Services Antepartum Care Only Subsequent Single Visit OB Services Antepartum Care Only Subsequent Single Visit 0502F 007 ARFMARGARET, ABDOULAYE [facility] OB Services Antepartum Care Only Subsequent Single Visit OB Services Antepartum Care Only Subsequent Single Visit 0502F 007 ARFAA, KAIVON DoD OB Services Antepartum Care Only Subsequent Single Visit OB Services Antepartum Care Only Subsequent Single Visit 0502F 007 ARFAA, KAIVON DoD OB Services Antepartum Care Only Subsequent Single Visit OB Services Antepartum Care Only Subsequent Single Visit 0502F 007 ARFAA, KAIVON [facility] OB Services Antepartum Care Only Subsequent Single Visit OB Services Antepartum Care Only Subsequent Single Visit 0502F 007 ARFAA, KAIVON [facility] OB Services Antepartum Care Only 1st Visit, With Flowsheet OB Services Antepartum Care Only 1st Visit, With Flowsheet 0501F 007 ARFAA, KAIVON [facility] Ultrasound Trans[place] [address] 007 ARF, KAIVON [facility] Screening papanicolaou smear; obtaining, preparing and conveyance of cervical or vaginal smear to laboratory 007 DEV AMAYA [facility] Screening papanicolaou smear; obtaining, preparing and conveyance of cervical or vaginal smear to laboratory 006 IRMA [address]Z [facility] Internet Med [facility] Qual [facility] Prof Estab Patient Internet Med [facility] Qual [facility] Prof Estab Patient 04852 RAYSHAWN MONROY [facility] Social History Combined list of available smoking, tobacco, and other social history from Department of Defense and Veterans Affairs facilities. Social History Type Response Date Comment [facility] e Tobacco Cigarette use: Never-cigarette user. [...] Source Assessment and Plan Extracted from:Title : [facility] [place] [place] Author: TYREL GARCIAS MD Date: 12/20/23 [...] refill(s), Maintenance, 1 appl(s) Topical Daily, Pharmacy: [facility] #[id number] [External Rx] CBC w/ Diff 2. L ipoma Chronic, uncontrolled. Firm, mobile, non-tender nodules on the scalp that are increasing in size, which is likely reactive to hormone production. Presentation is consistent with lipomas. Can also consider pilar cysts at this time. P atient would like referral at this time for further evaluation. - Referral to dermatology placed Ordered: Referral Request 2.0 - [facility] Orders: *Differential Automated TSH w/ Reflex FT4 and Total T3 Capt Tyrel Garcias MD Data Review Specialist, PGY-1 [facility] Medical [facility], [place], [place] Addendum by FABRIZIO KATZ MD on [...] facilitate documentation closure. Fabrizio Katz MD, Faculty, [facility], [facility], Attending Physician 12/03/2024 [id number] [facility] Functional Status Combined list of recent functional and cognitive assessments recorded at Department of Defense and Veterans Affairs (VA).VA Functional [place] Measurement (FIM) Scale: 1 = Total Assistance (Subject = 0% +), 2 = Maximal Assistance (Subject = 25% +), 3 = Moderate Assistance (Subject = 50% +), 4 = Minimal Assistance (Subject = 75% +), 5 = Supervision, 6 = Modified [place] (Device), 7 = Complete [place] (Timely, Safely). Assessment Date/Time Source Assessment Type Assessment Skill Assessment Score Assessment Details No data available for this section
== END 2024-12-03 09:31 | disposition home or self-care (01) ==
PROVIDERS: Emergency Provider Nurse Practitioner
DX: R42 Dizziness and giddiness (principal)
CPT/HCPCS: 99213; G0463